=== PATIENT | female | born 1980 | race Caucasian/White ===

== ENCOUNTER 2017-12-06 08:39 | Emergency (ER) | payer MEDICARE, MEDICAID, SELFPAY ==
[2017-12-06 08:46] VITALS: BP 124/73; PULSE 94; RESP 20; TEMP 36.6; O2SAT 99
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
[2017-12-06] MEDS: Normal Saline 250 ML IV (09:15)
[2017-12-06] MEDS: Ketorolac 30 MG/ML VIAL IVP (09:15)
[2017-12-06 09:17] LABS: Abs Immature Grans 0.06 k/cumm (0.0-0.09); Absolute Basophil Count 0.03 k/cumm (0.0-0.2); Absolute Eosinophil Count 0.24 k/cumm (0.0-0.7); Absolute Lymphocyte Count 2.23 k/cumm (1.2-3.4); Absolute Monocyte Count 0.61 k/cumm (0.11-0.7); Absolute Neutrophil Count 5.75 k/cumm (1.2-6.7); Basophils % 0.3; Eosinophils % 2.7; HCT 44.6 % (36.0-46.0); HGB 14.9 g/dL (12.0-15.5); Immature Grans % 0.7; Mean Corp. HGB Concentration 33.4 g/dL (32.0-36.0); Mean Corpuscular Hemoglobin 28.6 pg (27.0-33.0); Mean Corpuscular Volume 85.6 fL (80-95); Mean Platelet Volume 10.6 fL (8.0-11.0); Monocytes % 6.8; Neutrophils % 64.5; Platelet Count 217 x1000/uL (130-400); RBC 5.21 m/cumm (4.00-5.20); RBC Distribution Width 13.6 % (11.7-14.6); White Blood Cell Count 8.92 k/cumm (4.4-10.8)
[2017-12-06] MEDS: Omnipaque 350 MG/ML 100 ML BTL IJ (09:35)
[2017-12-06 09:46] LABS: ALT 15 U/L (12-78); AST 14 U/L (15-37); Albumin 3.7 g/dL (3.4-5.0); Alkaline Phosphatase 86 U/L (46-116); Anion Gap 7.9 mmol/L (3-11); BUN 12 mg/dL (7-18); Bilirubin, Total 0.4 mg/dL (0.2-1.0); CO2 27.1 mmol/L (21.0-32.0); CREATININE 0.83 mg/dL (0.55-1.02); Calcium 8.7 mg/dL (8.5-10.1); Chloride 104 mmol/L (98-107); Glucose 86 mg/dL (70-100); Potassium 3.5 mmol/L (3.5-5.1); Sodium 139 mmol/L (136-145); Total Protein 7.4 g/dL (6.4-8.2)
[2017-12-06] MEDS: Omnipaque 350 MG/ML 50 ML BTL IJ (09:55)
== END 2017-12-06 10:30 | disposition home or self-care (01) ==
PROVIDERS: Emergency Provider Emergency Medicine; PCP Family Medicine
DX: S16.1XXA Strain of muscle, fascia and tendon at neck level, initial encounter (principal); V86.55XA Driver of 3- or 4- wheeled all-terrain vehicle (ATV) injured in nontraffic accident, initial encounter
CPT/HCPCS: 36415; 70496; 70498; 74177; 80053; 96361; 96374; 99285; 70450; 71260; 72125; 85025; 99284; J1885; J3490; L0172; Q9967

== ENCOUNTER 2018-06-08 15:56 | Emergency (ER) | payer MEDICARE, MEDICAID, SELFPAY ==
[2018-06-08 16:14] VITALS: BP 111/63; PULSE 84; RESP 16; TEMP 36.6; O2SAT 99
--- NOTE | 2018-06-08 16:19 | ED.GENADUL_ITS ---
Discharge Plan Disposition Patient Disposition: HOME Condition: Stable Discharge Details Chief Complaint: RespSymp Clinical Impression: Chronic cough, Bronchitis Primary Care Provider: Leni Tubbs ED Provider: Keshia Ramirez Home Meds and New Rx's Prescriptions: New prednisone 50 mg tablet 50 mg PO DAILY 5 Days Qty: 5 RF: 0 benzonatate [Tessalon Perles] 100 mg capsule 100 mg PO TID PRN (Reason: cough ) Qty: 10 RF: 0 Continued clonazepam 0.5 MG tablet 0.5 mg PO PRN RF: 0 levothyroxine 50 MCG tablet 50 mcg PO DAILY RF: 0 esomeprazole magnesium [Nexium] 40 MG capsule,delayed release(DR/EC) 40 mg PO DAILY RF: 0 sertraline 25 MG tablet 100 mg PO DAILY RF: 0 naproxen 500 MG tablet 500 mg PO BID PRN PRNQty: 30 RF: 0 Discharge Instructions Instructions: Acute Bronchitis (ED), Chronic Cough (ED) Additional Instructions: Use the albuterol inhaler as needed and directed for shortness of breath. Take the cough medication as needed and directed. Take the steroids until finished. Follow-up with your primary care doctor next week for reevaluation. Return immediately to the emergency department with any worsening or new concerning symptoms. Discharge Data Discharge Date/Time-TO BE ENTERED AT DEPARTURE: 06/08/18 18:44 Discharge Physician: Keshia Ramirez Medical Decision Making 37yo F w/ a h/o anxiety, depression, hypothyroidism and PTSD who presents with cough with green sputum, intermittent shortness of breath and chest tightness for the past 3 weeks. Patient is a smoker. She denies any relief with Z-Luis per PCP. She was recently negative for the flu and strep per PCP. Patient states she called her PCP today and was advised to come to the emergency department for chest x-ray. No DVT/PE risk factors. PERC negative. Normal ENT exam. Lungs clear to auscultation. As patient has no wheezing or rhonchi, with normal respiratory rate and O2 sats duration due to patient's complaint of intermittent chest tightness and shortness of breath, will obtain a d-dimer. She denies any chest pain, and with her infectious complaints, I do not see an indication for an EKG. Will give an albuterol neb treatment and obtain a chest x-ray. 1800 --d-dimer negative. Chest x-ray negative. Patient feels better after albuterol neb treatment. Will send home with an albuterol inhaler and give a dose of p.o. prednisone here as well as a prescription for prednisone and Tessalon Perles. As patient has no pneumonia on x-ray, no fever, normal lung exam, respiratory rate and oxygen saturation, I do not see an indication for antibiotics and patient is agreeable. Patient instructed to follow-up with primary care doctor for reevaluation and return here if worse. Had a long discussion with patient regarding the risks of continued smoking and that it will likely prolong her illness and this could be the contributing factor to her persistent symptoms. Discussed the options to help her with smoking cessation. 185 --it was very busy in the ED at the time of patient discharge and she eloped before receiving her prescriptions, inhaler or discharge instructions. Called patient on contact number left but there was no answer and unable to leave a message. Will leave prescriptions with an infant it up if she calls back. Patient return to the ED the following day and pickle processor her albuterol inhaler, prescriptions and discharge instructions. Medical Records Medical records reviewed: Yes I reviewed the patient's medical records. Imaging Data Radiologic Study: Radiologist's impression: XR Chest, 2 Views EXAM DATE/TIME: 06/08/2018 4:34 PM FINDINGS: Lungs: Unremarkable. No consolidation. Pleural space: Unremarkable. No pleural effusion. No pneumothorax. Heart/Mediastinum: Unremarkable. No cardiomegaly. Bones/joints: Unremarkable. IMPRESSION: No acute abnormality. Lab Data Lab results reviewed: Yes I reviewed the patient's lab results. Laboratory Tests Range/Units 06/08/18 16:52 D-Dimer (<500) ng/mlFEU 216 HPI General Mode of arrival: ambulatory . Date/Time Provider Initiated Documentation: 06/08/18 16:01 . Limitations to Documentation: no limitations . Information obtained by: patient . HPI Narrative: Pt is a 37yo F who presents to the ED with a complaint of cough with green sputum production for the past 3 weeks. Patient states she saw her primary care doctor for the symptoms earlier this month and was negative for the flu and strep and was given a Z-Luis. She denies any improvement in her symptoms. She states the cough is bothering her the most. She does admit to a occasional shortness of breath with exertion and chest tightness. She does admit to intermittent decreased appetite. She denies any known fever, wheezing, rhinorrhea, sore throat, ear pain, vomiting or diarrhea. She states she called her primary care doctor's office today and was referred to the emergency department for chest x-ray. Related Data Home Medications Medication Instructions Recorded Confirmed clonazepam 0.5 mg PO PRN 06/06/13 06/08/18 esomeprazole magnesium [Nexium] 40 mg PO DAILY 06/06/13 06/08/18 levothyroxine 50 mcg PO DAILY 06/06/13 06/08/18 sertraline 100 mg PO DAILY 06/06/13 06/08/18 naproxen 500 mg PO BID PRN PRN #30 tablet 06/30/14 06/08/18 benzonatate [Tessalon Perles] 100 mg PO TID PRN #10 cap 06/08/18 prednisone 50 mg PO DAILY 5 Days #5 tab 06/08/18 Previous Rx's Medication Instructions Recorded naproxen 500 mg PO BID PRN PRN #30 tablet 06/30/14 benzonatate [Tessalon Perles] 100 mg PO TID PRN #10 cap 06/08/18 prednisone 50 mg PO DAILY 5 Days #5 tab 06/08/18 Allergies Allergy/AdvReac Type Severity Reaction Status Date / Time topiramate [From Topamax] Allergy Skin Rash Unverified 06/08/18 16:19 General Stated Complaint: RespSymp SONALI: 3 Review of Systems Review of Systems All systems reviewed & are unremarkable except as noted in HPI and below Constitutional Reports as per HPI, Denies chills and Denies fever(s) Eyes Denies blurry vision ENT Denies dizziness, Denies sore throat and Denies throat swelling Cardiovascular Denies chest pain and Reports dyspnea Respiratory Reports cough and Reports dyspnea Gastrointestinal Denies abdominal pain, Denies diarrhea and Denies vomiting Genitourinary Denies hematuria and Denies dysuria Musculoskeletal Denies back pain and Denies numbness Integumentary/Breasts Denies lesions and Denies rash Neurologic Denies dizziness, Denies focal weakness and Denies numbness Allergic/Immunologic Denies throat swelling [facility] Medical History PTSD (post-traumatic stress disorder) (Acute) Anxiety (Chronic) Depression (Chronic) Hypothyroidism (Chronic) Surgical History History of bilateral tubal ligation (Acute) History of hysterectomy (Chronic) Social History Smoking/Tobacco Use Status: Current every day Tobacco Type: cigarettes Alcohol Intake: current Alcohol Intake frequency: holidays/special occasions only Drug use: Never Do you feel safe at home: Yes Do you feel safe in your relationship?: Yes Exam Const General: cooperative, healthy appearing and no acute distress HENMT Head: normal to inspection Ears: hearing grossly normal bilaterally, external ears normal and TM's normal bilaterally General nose exam: external nose normal Face and sinus: normal facial exam Mouth: oral mucosae normal, no drooling and no trismus Teeth and gingiva: dentition normal Throat: posterior oropharynx normal, uvula midline, no peritonsillar masses and no uvular edema Eyes General: appearance normal, both eyes and all related structures Pupils: PERRL EOM: EOM intact bilaterally Neck Neck: normal visual inspection and No submandibular swelling Lymphatic: no lymphadenopathy noted Chest Chest: normal inspection of the chest and no tenderness Resp Effort & Inspection: normal respiratory effort and able to speak in complete sentences Auscultation: clear to auscultation bilaterally Cardio Rate: regular rate Rhythm: regular rhythm GI Inspection: normal to inspection Palpation: soft, not firm, not rigid and nontender Auscultation: normal bowel sounds Skin General skin exam: no rashes or lesions noted Neuro General: alert, awake and oriented x3 Cognition: normal cognition Speech: speech normal Motor: muscle tone normal throughout Sensory Exam: no sensory deficits noted Extrem General: normal to inspection, full ROM and no edema Psych Appearance: grossly normal Mental Status: mental status grossly normal Speech and Movement: speech and movement normal Affect: normal affect Course Vital Signs Temperature 97.9 F 06/08/18 16:14 Pulse 84 06/08/18 16:14 Respiratory Rate 16 06/08/18 16:14 Blood Pressure 111/63 06/08/18 16:14 Pulse Oximetry 99 06/08/18 16:14 Temperature 97.9 F 06/08/18 16:14 Temperature Source Temporal Artery Scan 06/08/18 16:14 Pulse 84 06/08/18 16:14 Respiratory Rate 16 06/08/18 16:14 Blood Pressure 111/63 06/08/18 16:14 Blood Pressure Position Sitting 06/08/18 16:14 Pulse Oximetry 99 06/08/18 16:14 Oxygen Delivery Method Room Air 06/08/18 16:14 Oxygen Flow Rate 0 06/08/18 16:14
--- NOTE | 2018-06-08 16:33 | DI.RAD_ITS ---
SYMPTOM/DIAGNOSIS: COUGH, SOB PA AND LATERAL CHEST: The heart is normal in size. The lungs are clear. The mediastinal structures and pleura appear intact. CONCLUSION: Normal chest.
[2018-06-08] MEDS: Albuterol/Ipratropium 3 ML UPD VIAL UPD (16:41)
[2018-06-08 17:29] LABS: D-Dimer 216 ng/mlFEU (<500)
--- NOTE | 2018-06-08 17:47 | DI.VRAD_ITS ---
EXAM: XR Chest, 2 Views EXAM DATE/TIME: 06/08/2018 4:34 PM CLINICAL HISTORY: 37 years old, female; Signs and symptoms; Cough TECHNIQUE: Imaging protocol: XR of the chest, 2 views. COMPARISON: CR ABD FLAT UPRIGHT PA CHEST 06/06/2013 1:08 PM FINDINGS: Lungs: Unremarkable. No consolidation. Pleural space: Unremarkable. No pleural effusion. No pneumothorax. Heart/Mediastinum: Unremarkable. No cardiomegaly. Bones/joints: Unremarkable. IMPRESSION: No acute abnormality. Dictated and Authenticated by: Leni Haji MD. Ordering:FRANCO Schmitt MD
--- NOTE | 2018-06-08 19:01 | NUR.NOTE ---
Pt advised was done waiting and left, all discharge paperwork was done. Dr. Ramirez is going to call pt and advise can come back to get paperwork and prescriptions if she would like.
== END 2018-06-08 18:44 | disposition home or self-care (01) ==
PROVIDERS: Emergency Provider Physician Assistant; PCP Nurse Practitioner Family
DX: J20.9 Acute bronchitis, unspecified (principal); R05 Cough; F17.210 Nicotine dependence, cigarettes, uncomplicated
CPT/HCPCS: 36415; 99284; 71046; 85379; J7620

== ENCOUNTER 2020-07-11 11:32 | Emergency (ER) | payer MEDICARE, MEDICAID, OTHER, SELFPAY ==
[2020-07-11 11:35] VITALS: BP 121/47; PULSE 88; RESP 16; TEMP 36.5; O2SAT 97
--- NOTE | 2020-07-11 11:52 | ED.GENADUL_ITS ---
Discharge Plan Disposition Patient Disposition: HOME Condition: Stable Discharge Details Clinical Impression: Neck pain Primary Care Provider: Leni Tubbs ED Provider: Sacha Germain Home Meds and New Rx's Prescriptions: New cyclobenzaprine 10 mg tablet 10 mg PO TID PRNQty: 20 RF: 0 prednisone 20 mg tablet 60 mg PO DAILY 4 Days Qty: 12 RF: 0 Continued clonazepam 0.5 MG tablet 0.5 mg PO PRN RF: 0 levothyroxine 50 MCG tablet 50 mcg PO DAILY RF: 0 esomeprazole magnesium [Nexium] 40 MG capsule,delayed release(DR/EC) 40 mg PO DAILY RF: 0 sertraline 25 MG tablet 150 mg PO DAILY RF: 0 naproxen 500 MG tablet 500 mg PO BID PRN PRNQty: 30 RF: 0 Discharge Instructions Instructions: Neck Pain (ED) Additional Instructions: your cat scan did not show any concerning findings follow up with your primary care provider this week if you have severe worsening pain, fevers or feel more ill [facility] Medical Decision Making 39 yo female with hx of right rotator cuff injury per her history from 6 years ago and chronic intermittent pain in the right shoulder/neck but for the last few months has had constant right posterior neck pain. She states she turned her head this morning in the shower and had increase in pain. No falls or trauma. No fevers, no vision changes or speech changes. She has tenderness to the right posterior neck, no midline pain and no visible or palpable deformities. She has pain when trying to turn to the right. CN II-XII intact and no focal motor or sensation deficits. Also has had intermittent mild right side headaches as well, not severe and no pain in the head now. Her symptoms are likely musculoskeletal and but given worsening pain that worsened today with head turning concern for possible dissection so will obtain CTA. 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 labs and imaging unremarkable, stable exam. Discussed further testing including an LP and my clinical suspicion of meningitis being low but can't exclude it without an LP. She has decision making capacity and at present time is declining a lumbar puncture after being told risks of missing entities such as meningitis including disability and . I do suspect this is musculoskeletal in nature and will start her on flexeril and prednisone. She was advised to follow up with her primary care provider this week and return precautions also given Differential Diagnosis Differential Diagnosis: muscle spasm, dissection, aneurysm Imaging Data Radiologic Study: Attestation: I personally reviewed and interpreted this imaging study as follows: Imaging: CT Scan Radiologist's impression: no acute findings Lab Data Lab results reviewed: Yes I reviewed the patient's lab results. HPI General Mode of arrival: ambulatory . Date/Time Provider Initiated Documentation: 07/11/20 11:38 . Limitations to Documentation: no limitations . Information obtained by: patient . History of Present Illness 39 year old F presents to the emergency department with the chief complaint of neck pain, described as moderate, Quality is described as aching, and is localized to the neck. Patient reports no radiation. Patient started experiencing this month(s) (2) and it has been constant. Rest improves symptom(s), Movement worsens symptoms . Patient notes no other symptoms.. Patient did receive the following treatments prior to arrival, NSAID Related Data Home Medications Medication Instructions Recorded Confirmed clonazepam 0.5 mg PO PRN 06/06/13 07/11/20 esomeprazole magnesium [Nexium] 40 mg PO DAILY 06/06/13 07/11/20 levothyroxine 50 mcg PO DAILY 06/06/13 07/11/20 sertraline 150 mg PO DAILY 06/06/13 07/11/20 naproxen 500 mg PO BID PRN PRN #30 tablet 06/30/14 06/08/18 cyclobenzaprine 10 mg PO TID PRN #20 tab 07/11/20 prednisone 60 mg PO DAILY 4 Days #12 tab 07/11/20 Previous Rx's Medication Instructions Recorded naproxen 500 mg PO BID PRN PRN #30 tablet 06/30/14 cyclobenzaprine 10 mg PO TID PRN #20 tab 07/11/20 prednisone 60 mg PO DAILY 4 Days #12 tab 07/11/20 Allergies Allergy/AdvReac Type Severity Reaction Status Date / Time topiramate [From Topamax] Allergy Skin Rash Unverified 06/08/18 16:19 General Stated Complaint: Nk/Back Pain SONALI: 3 Review of Systems All systems reviewed & are unremarkable except as noted in HPI and below Constitutional Constitutional: Denies chills, Denies fever(s) and Denies weakness Cardiovascular Cardiovascular: Denies chest pain and Denies dyspnea Respiratory Respiratory: Denies cough and Denies dyspnea Gastrointestinal Gastrointestinal: Denies abdominal pain, Denies nausea and Denies vomiting Musculoskeletal Musculoskeletal: Denies joint swelling Neurologic Neurologic: Denies weakness [facility] Medical History (Updated 07/11/20 @ 13:44 by Sacha Germain MD) Anxiety Depression Hypothyroidism PTSD (post-traumatic stress disorder) Surgical History History of bilateral tubal ligation History of hysterectomy Social History Smoking/Tobacco Use Status: Current every day Tobacco Type: cigarettes Smoking risk assessment performed?: Yes Alcohol Intake: current Alcohol Intake frequency: holidays/special occasions only Drug use: Never Do you feel safe at home: Yes Do you feel safe in your relationship?: Yes Exam Const General: no acute distress Orientation: alert HENMT Head: normal to inspection Ears: external ears normal General nose exam: external nose normal Mouth: moist mucous membranes Eyes General: appearance normal, both eyes and all related structures Neck Neck: normal visual inspection Resp Effort & Inspection: normal respiratory effort and able to speak in complete sentences Cardio Rate: regular rate Skin General skin exam: no rashes or lesions noted Neuro General: patient alert and patient oriented x3 Extrem General: normal to inspection Psych Mental Status: mental status grossly normal Course Vital Signs Vital signs: Vital Signs Temperature 36.5 C 07/11/20 11:35 Pulse 88 07/11/20 11:35 Respiratory Rate 16 07/11/20 11:35 Blood Pressure 121/47 L 07/11/20 11:35 Pulse Oximetry 97 07/11/20 11:35 Temperature 36.5 C 07/11/20 11:35 Temperature Source Skin 07/11/20 11:35 Pulse 88 07/11/20 11:35 Respiratory Rate 16 07/11/20 11:35 Blood Pressure 121/47 L 07/11/20 11:35 Pulse Oximetry 97 07/11/20 11:35 Oxygen Delivery Method Room Air 07/11/20 11:35 Oxygen Flow Rate 0 07/11/20 11:35 Pain Level 8 07/11/20 11:35
[2020-07-11] MEDS: diazePAM 10 MG/2 ML SYR 5 MG IVP (12:15)
[2020-07-11 12:20] LABS: Abs Immature Grans 0.04 10^3/uL (0.0-0.06); Absolute Basophil Count 0.04 10^3/uL (0.0-0.2); Absolute Eosinophil Count 0.14 10^3/uL (0.0-0.7); Absolute Monocyte Count 0.54 10^3/uL (0.1-0.8); Absolute Neutrophil Count 5.44 10^3/uL (1.2-6.7); Basophils % 0.5; Eosinophils % 1.8; HCT 40.7 % (36.0-46.0); HGB 13.5 g/dL (11.2-15.7); Immature Grans % 0.5; Lymphocytes % 22.5; MCH 28.7 pg (27.0-33.0); MCHC 33.2 % (32.0-36.0); MCV 86.4 fL (80-95); MPV 9.7 fL (8.0-11.0); Monocytes % 6.8; Neutrophils % 67.9; Nucleated RBC 0 %; Platelet Count 245 10^3/uL (130-400); RBC 4.71 10^6/uL (3.93-5.22); RDW 12.7 % (11.7-14.6); RDW-SD 40.2 fL
[2020-07-11 12:32] LABS: ALT 23 U/L (14-59); AST 14 U/L (15-37); Albumin 3.9 g/dL (3.4-5.0); Alkaline Phosphatase 67 U/L (46-116); Anion Gap 7.7 mmol/L (3-11); BUN 12 mg/dL (7-18); Bilirubin, Total 0.4 mg/dL (0.2-1.0); CO2 29.3 mmol/L (21.0-32.0); CREATININE 0.9 mg/dL (0.55-1.02); Calcium 9.1 mg/dL (8.5-10.1); Chloride 103 mmol/L (98-107); Glucose 72 mg/dL (74-106); Potassium 3.6 mmol/L (3.5-5.1); Sodium 140 mmol/L (136-145); Total Protein 7.3 g/dL (6.4-8.2)
[2020-07-11] MEDS: Normal Saline - Diluent 50 ML VIAL IV (12:33)
[2020-07-11] MEDS: Omnipaque 350 MG/ML 100 ML BTL IJ (12:33)
[2020-07-11] MEDS: Normal Saline Flush 10 ML SYR IVP (12:34)
--- NOTE | 2020-07-11 12:50 | DI.CT_ITS ---
Exam(s) CT BRAIN NECK CTA EXAM: CT BRAIN NECK CTA CLINICAL HISTORY: right sided neck and head pain. TECHNIQUE: Imaging Protocol: Axial CT angiography was performed with multi-slice acquisition and mu lti-planar and/or 3D reconstructions. CONTRAST MATERIAL: Intravenous: Omnipaque 350 Contrast volume:85 mL FINDINGS: CT Head W/O and W: Ventricles and Extra axial spaces: Normal in size and morphology for the patient's age. Hemorrhage: None. Cerebral parenchyma: Normal. Midline shift: None. Brainstem/Cerebellum: Normal. Calvarium: Normal. Visualized Paranasal sinuses/Mastoids: Clear. Soft Tissues: Unremarkable. Enhancement: Unremarkable. CTA Neck W: Common Carotid: Right: No dissection, occlusion or significant stenosis. Left: No dissection, occlusion or significant stenosis. External Carotid: Right: No occlusion or significant stenosis. Left: No occlusion or significant stenosis. Internal Carotid: Right: No dissection, occlusion or significant stenosis. Left: No dissection, occlusion or significant stenosis. Vertebral Artery: Right: No dissection, occlusion or significant stenosis. Left: No dissection, occlusion or significant stenosis. Lung Apices: Normal. Bones: Normal. Soft Tissues: Normal. CTA Brain W: Internal Carotid Arteries: Petrous: Normal. Cavernous: Normal. Cerebral: Normal. Anterior Cerebral Arteries: Right: No aneurysm, occlusion or significant stenosis. Left: No aneurysm, occlusion or significant stenosis. Middle Cerebral Arteries: Right: No aneurysm, occlusion or significant stenosis. Left: No aneurysm, occlusion or significant stenosis. Posterior cerebral Arteries: Right: No aneurysm, occlusion or significant stenosis. Left: No aneurysm, occlusion or significant stenosis. Vertebral Arteries: Right: No aneurysm, occlusion or significant stenosis. Left: No aneurysm, occlusion or significant stenosis. Basilar Artery: No aneurysm, occlusion or significant stenosis. IMPRESSION: 1. Normal CTA examination of the [place]. 2. Unremarkable noncontrast CT Head. 3. Normal CTA examination of the neck. RADIATION DOSE DELIVERED: 1,771.15mGy.cm Total DLP DATA REPOSITORY: All CT scans at this facility are submitted to the National Radiology Data Registry (NRDR) Dose Index Registry (DIR) with the [employer] (ACR). RADIATION OPTIMIZATION: All CT scans at this facility use at least one of these dose optimization te chniques: automated exposure control; mA and/or kV adjustment per patient size (includes targeted exa ms where dose is matched to clinical indication); or iterative reconstruction.
--- NOTE | 2020-07-11 13:24 | DI.VRAD_ITS ---
PROCEDURE INFORMATION: Exam: CT Angiography Head With Contrast, Arteriography Exam date and time: 07/11/2020 12:39 PM Age: 39 years old Clinical indication: Other: Right sided neck and head pain TECHNIQUE: Imaging protocol: Computed tomography angiography of the head with contrast. Exam focused on the arteries. 3D rendering (Not supervised by radiologist): MIP and/or 3D reconstructed images were created by the technologist. Radiation optimization: All CT scans at this facility use at least one of these dose optimization techniques: automated exposure control; mA and/or kV adjustment per patient size (includes targeted exams where dose is matched to clinical indication); or iterative reconstruction. Contrast material: OMNIPAQUE 350; Contrast volume: 85 ml; Contrast route: INTRAVENOUS (IV); COMPARISON: No relevant prior studies available. FINDINGS: ANTERIOR CIRCULATION: Right internal carotid artery: Unremarkable. Intracranial segment is patent with no significant stenosis. No aneurysm. Right middle cerebral artery: Unremarkable. No occlusion or significant stenosis. No aneurysm. Right anterior cerebral artery: Unremarkable. No occlusion or significant stenosis. No aneurysm. Left internal carotid artery: Unremarkable. Intracranial segment is patent with no significant stenosis. No aneurysm. Left middle cerebral artery: Unremarkable. No occlusion or significant stenosis. No aneurysm. Left anterior cerebral artery: Unremarkable. No occlusion or significant stenosis. No aneurysm. POSTERIOR CIRCULATION: Right vertebral artery: Unremarkable. No occlusion or significant stenosis. No aneurysm. Left vertebral artery: Unremarkable. No occlusion or significant stenosis. No aneurysm. Basilar artery: Unremarkable. No occlusion or significant stenosis. No aneurysm. Right posterior cerebral artery: Unremarkable. No occlusion or significant stenosis. No aneurysm. Left posterior cerebral artery: Unremarkable. No occlusion or significant stenosis. No aneurysm. Brain: No definite mass, mass effect, or midline shift. Cerebral ventricles: No ventriculomegaly. Bones/joints: Unremarkable. No acute fracture. Soft tissues: Unremarkable. IMPRESSION: No large vessel stenosis or occlusion. PROCEDURE INFORMATION: Exam: CT Angiography Neck With Contrast Exam date and time: 07/11/2020 12:39 PM Age: 39 years old Clinical indication: Other: Right sided neck and head pain TECHNIQUE: Imaging protocol: Computed tomography angiography of the neck with contrast. 3D rendering (Not supervised by radiologist): MIP and/or 3D reconstructed images were created by the technologist. Radiation optimization: All CT scans at this facility use at least one of these dose optimization techniques: automated exposure control; mA and/or kV adjustment per patient size (includes targeted exams where dose is matched to clinical indication); or iterative reconstruction. Contrast material: OMNIPAQUE 350; Contrast route: INTRAVENOUS (IV); COMPARISON: No relevant prior studies available. FINDINGS: Right common carotid artery: No stenosis. No dissection or occlusion. Right internal carotid artery: No stenosis of the extracranial segment. No dissection or occlusion. Right external carotid artery: No occlusion or stenosis of the origin. Right vertebral artery: No stenosis. No dissection or occlusion. Left common carotid artery: No stenosis. No dissection or occlusion. Left internal carotid artery: No stenosis of the extracranial segment. No dissection or occlusion. Left external carotid artery: No occlusion or stenosis of the origin. Left vertebral artery: No stenosis. No dissection or occlusion. Bones/joints: No acute fracture. Soft tissues: Normal. No significant soft tissue swelling. IMPRESSION: No stenosis or occlusion. REFERENCES: NASCET CRITERIA. The degree of internal carotid artery stenosis is based on NASCET criteria. Normal is no stenosis. Mild is less than 50% stenosis. Moderate is 50-69% stenosis. Severe is 70% to 99% stenosis. Total occlusion is no detectable patent lumen. Dictated and Authenticated by: Tg Bello MD. Ordering:ADAN Goncalves MD
[2020-07-11] MEDS: predniSONE 20 MG TAB 60 MG PO (13:49)
[2020-07-11 13:55] VITALS: BP 112/70; PULSE 76; RESP 16; TEMP 36.5; O2SAT 99
== END 2020-07-11 13:56 | disposition home or self-care (01) ==
PROVIDERS: Emergency Provider Emergency Medicine; PCP Nurse Practitioner Family
DX: M54.2 Cervicalgia (principal)
CPT/HCPCS: 70496; 70498; 80053; 96374; 99285; 85025; 99283; J3360; J3490; J7512

== ENCOUNTER 2021-03-24 03:25 | Emergency (ER) | payer MEDICARE, BC, MEDICAID, SELFPAY ==
[2021-03-24 03:26] VITALS: BP 116/75; PULSE 104; RESP 18; TEMP 36.4; O2SAT 99
--- NOTE | 2021-03-24 03:30 | DI.CT_ITS ---
Exam(s) CT ABDOMEN PELVIS W EXAM: CT ABDOMEN PELVIS W CLINICAL HISTORY: n/v, pain. TECHNIQUE: Imaging Protocol: Axial computed tomography images with coronal and sagittal reformatted images were created and reviewed CONTRAST MATERIAL: Intravenous: Omnipaque 100cc Oral: None FINDINGS: VISUALIZED LUNG BASES: No nodules nor pleural effusions evident. ABDOMEN: There is no ascites. LIVER: There is an unchanged tiny cyst in the medial aspect of the right hepatic lobe. No new ominou s focal hepatic lesions. No dilatation of intrahepatic ducts. GALLBLADDER/BILIARY: There are multiple tiny gallstones layered along the dependent wall of the gallb ladder lumen. The gallbladder wall is not edematous and there is no pericholecystic fluid. CBD is n ot dilated and there are no calculi seen within the CBD. PANCREAS: No evidence of pancreatic mass nor dilatation of the pancreatic duct. SPLEEN: Spleen is not enlarged. No obvious intrasplenic lesions. Splenic and portal veins are paten t. ADRENALS: There is a nodule in the medial limb of the left adrenal gland measuring 1.4 by 1.0 cm, mor e evident than previous. KIDNEYS:No cysts evident. No solid renal masses. No calculi nor hydronephrosis.. ABDOMINAL AORTA: Abdominal aorta is not enlarged. LYMPH NODES:There is no retroperitoneal nor paraaortic adenopathy. ABDOMINAL WALL: No evidence of significant anterior abdominal wall nor inguinal hernia. GI: There is no evidence of bowel obstruction, free air, nor abscess. PELVIS: GI: No evidence of appendicitis.No evidence of sigmoid diverticulitis.The colon exhibits normal diame ter but appears fluid-filled. LYMPH NODES: There is no intrapelvic nor inguinal adenopathy. REPRODUCTIVE: The uterus is surgically absent. Left ovary measures 2 x 1.7 cm. Right ovary measures 2.7 x 2.0 cm and contains what appears to be a partially crenated cyst which measures 1.8 x 1.4 cm. There is no free fluid in the pelvis. No abscess evident. . URINARY BLADDER: Collapsed. No obvious abnormality. OSSEOUS: No significant osseous lesions. IMPRESSION: 1. Cholelithiasis. There are multiple tiny gallstones layered along the posterior wall of the gallbl adder. No gallbladder wall edema nor pericholecystic fluid to suggest acute diverticulitis. There i s no dilatation of the biliary tree, both intra and extrahepatic. 2. There is a 14 x 10 millimeter nodule in the left adrenal gland, slightly more prominent than on e prior November 2017 CT scan. Requires appropriate follow-up. 3. Colon exhibits normal diameter but is fluid-filled and this probably reflects diarrhea state. Cor relation with any clinical signs of colitis is recommended. No obvious abnormal small bowel findings . 4. Uterus is surgically absent. No abnormal fluid collection nor extraovarian adnexal mass. There i s partially crenated cyst in the right ovary measuring 18 x [address] study was 1st read by [facility]. My final report was called to ER physician 03/24/2021 at 8:55 a.m. RADIATION DOSE DELIVERED: 1,057.01mGy.cm Total DLP DATA REPOSITORY: All CT scans at this facility are submitted to the National Radiology Data Registry (NRDR) Dose Index Registry (DIR) with the [employer] (ACR). RADIATION OPTIMIZATION: All CT scans at this facility use at least one of these dose optimization te chniques: automated exposure control; mA and/or kV adjustment per patient size (includes targeted exa ms where dose is matched to clinical indication); or iterative reconstruction.
--- NOTE | 2021-03-24 03:34 | ED.GENADUL_ITS ---
Discharge Plan Disposition Patient Disposition: HOME Condition: Stable Discharge Details Clinical Impression: Diarrhea, Nausea & vomiting, Abdominal pain Primary Care Provider: Leni Tubbs ED Provider: Sacha Germain Home Meds and New Rx's Prescriptions: New ondansetron 4 mg tablet,disintegrating 4 mg PO Q8H PRN (Reason: nausea and vomiting) Qty: 30 RF: 0 Continued clonazepam 0.5 MG tablet 0.5 mg PO PRN RF: 0 levothyroxine 50 MCG tablet 50 mcg PO DAILY RF: 0 esomeprazole magnesium [Nexium] 40 MG capsule,delayed release(DR/EC) 40 mg PO DAILY RF: 0 sertraline 25 MG tablet 150 mg PO DAILY RF: 0 naproxen 500 MG tablet 500 mg PO BID PRN PRNQty: 30 RF: 0 cyclobenzaprine 10 mg tablet 10 mg PO TID PRNQty: 20 RF: 0 Discharge Instructions Instructions: Acute Nausea and Vomiting (ED), Acute Diarrhea (ED) Additional Instructions: take frequent small sips of water to stay hydrated follow up with your primary care provider within 1 week if symptoms continue if you feel more ill, have severe worsening pain or are unable to hold water down return to the emergency department Medical Decision Making 40 yo female who states she has a history of anxiety, prior hysterectomy, who comes in with diarrhea, n/v since 4pm yesterday and some intermittent abdominal discomfort. She denies any new foods, new meds or recent antibiotics. She did take a klonopin as she felt like it may be related to her anxiety without relief. She denies having chest pain or shortness of breath. She arrives with ems after getting zofran and feels improved. She has clear lungs, no murmurs, no leg edema, and on abdominal exam her abdomen is soft with tenderness around the umbilicus. Suspect gastroenteritis given the diarrhea but given her prior surgery and tenderness will obtain ct to evaluate for possible sbo labs unremarkable, mild leukocytosis and ct without acute findings other than fluid in colon compatible with nonspecific diarrheal state. Suspect viral gastroenteritis. She is feeling better and tolerating po, mild epigastric tenderness now no guarding and negative jennings's sign. She is stable for d/c and advised to f/u with pcp and return precautions given Differential Diagnosis Differential Diagnosis: colitis, sbo, food related illness Medical Records Medical records reviewed: Yes I reviewed the patient's medical records. Imaging Data Radiologic Study: Attestation: I personally reviewed and interpreted this imaging study as follows: Imaging: CT Scan Radiologist's impression: IMPRESSION: Fluid within the colon compatible with nonspecific diarrheal state. Lab Data Lab results reviewed: Yes I reviewed the patient's lab results. HPI General Mode of arrival: EMS . Date/Time Provider Initiated Documentation: 03/24/21 03:30 . Limitations to Documentation: no limitations . Information obtained by: patient . History of Present Illness 40 year old F presents to the emergency department with the chief complaint of n/v, described as moderate, and is localized to the abdomen. Patient reports no radiation. Patient started experiencing this hour(s) (11) and it has been intermittent. other things that improve symptom(s), (zofran with ems) No exacerbating factors reported . Patient notes denies chest pain and shortness of breath. Patient did receive the following treatments prior to arrival, other (zofran with ems) Related Data Home Medications Medication Instructions Recorded Confirmed clonazepam 0.5 mg PO PRN 06/06/13 03/24/21 esomeprazole magnesium [Nexium] 40 mg PO DAILY 06/06/13 03/24/21 levothyroxine 50 mcg PO DAILY 06/06/13 03/24/21 sertraline 150 mg PO DAILY 06/06/13 03/24/21 naproxen 500 mg PO BID PRN PRN #30 tablet 06/30/14 03/24/21 cyclobenzaprine 10 mg PO TID PRN #20 tab 07/11/20 03/24/21 ondansetron 4 mg PO Q8H PRN #30 tab 03/24/21 Previous Rx's Medication Instructions Recorded naproxen 500 mg PO BID PRN PRN #30 tablet 06/30/14 cyclobenzaprine 10 mg PO TID PRN #20 tab 07/11/20 ondansetron 4 mg PO Q8H PRN #30 tab 03/24/21 Allergies Allergy/AdvReac Type Severity Reaction Status Date / Time topiramate [From Topamax] Allergy Skin Rash Unverified 06/08/18 16:19 General Stated Complaint: Nausea/Vomit/Diar SONALI: 3 Review of Systems All systems reviewed & are unremarkable except as noted in HPI and below Constitutional Constitutional: Denies chills, Denies fever(s) and Denies weakness Cardiovascular Cardiovascular: Denies chest pain and Denies dyspnea Respiratory Respiratory: Denies cough and Denies dyspnea Neurologic Neurologic: Denies weakness PFSH All Active Problems (Updated 03/24/21 @ 04:29 by Sacha Germain MD) Neck pain (Acute) Diarrhea (Acute) Nausea & vomiting (Acute) Abdominal pain (Acute) Medical History (Updated 03/24/21 @ 04:29 by Sacha Germain MD) Anxiety Depression Hypothyroidism PTSD (post-traumatic stress disorder) Surgical History History of bilateral tubal ligation History of hysterectomy Social History Smoking/Tobacco Use Status: Current every day Tobacco Type: cigarettes Smoking risk assessment performed?: Yes Alcohol Intake: current Alcohol Intake frequency: holidays/special occasions only Drug use: Never Substance use type: does not use Do you feel safe at home: Yes Do you feel safe in your relationship?: Yes Exam Const General: anxious Orientation: alert HENMT Head: normal to inspection Ears: external ears normal General nose exam: external nose normal Mouth: moist mucous membranes Eyes General: appearance normal, both eyes and all related structures Neck Neck: normal visual inspection Resp Effort & Inspection: normal respiratory effort and able to speak in complete sentences Cardio Rate: regular rate GI Palpation: soft and tender Skin General skin exam: no rashes or lesions noted Neuro General: patient alert and patient oriented x3 Extrem General: normal to inspection Psych Mental Status: mental status grossly normal Course Vital Signs Vital signs: Vital Signs Temperature 36.4 C L 03/24/21 03:26 Pulse 104 H 03/24/21 03:26 Respiratory Rate 18 03/24/21 03:26 Blood Pressure 116/75 03/24/21 03:26 Pulse Oximetry 99 03/24/21 03:26 Temperature 36.4 C L 03/24/21 03:26 Temperature Source Temporal Artery Scan 03/24/21 03:26 Pulse 104 H 03/24/21 03:26 Respiratory Rate 18 03/24/21 03:26 Respiratory Effort 03/24/21 03:31 Blood Pressure 116/75 03/24/21 03:26 Blood Pressure Position Supine 03/24/21 03:26 Pulse Oximetry 99 03/24/21 03:26 Oxygen Delivery Method Room Air 03/24/21 03:26 Oxygen Flow Rate 0 03/24/21 03:26 Pain Level 4 03/24/21 03:26
[2021-03-24 03:41] LABS: Abs Immature Grans 0.07 10^3/uL (0.0-0.06); Absolute Basophil Count 0.04 10^3/uL (0.0-0.2); Absolute Eosinophil Count 0.15 10^3/uL (0.0-0.7); Absolute Lymphocyte Count 0.42 10^3/uL (1.2-3.4); Absolute Monocyte Count 0.48 10^3/uL (0.1-0.8); Basophils % 0.3; Eosinophils % 1.1; HCT 43.7 % (36.0-46.0); HGB 14.3 g/dL (11.2-15.7); Immature Grans % 0.5; Lymphocytes % 3.2; MCH 27.6 pg (27.0-33.0); MCHC 32.7 % (32.0-36.0); MCV 84.2 fL (80-95); Monocytes % 3.6; Neutrophils % 91.3; Nucleated RBC 0 %; Platelet Count 223 10^3/uL (130-400); RBC 5.19 10^6/uL (3.93-5.22); RDW 12.4 % (11.7-14.6); RDW-SD 38.2 fL; WBC 13.26 10^3/uL (4.4-10.8)
[2021-03-24 03:43] LABS: Absolute Neutrophil Count 12.11 10^3/uL (1.2-6.7)
[2021-03-24] MEDS: Omnipaque 350 MG/ML 100 ML BTL IJ (03:48)
[2021-03-24] MEDS: Normal Saline 1,000 ML 1000 ML IV (03:48)
[2021-03-24] MEDS: Prochlorperazine 10 MG/2 ML VIAL IVP (03:49)
[2021-03-24] MEDS: Normal Saline Flush 10 ML SYR IVP (03:49)
[2021-03-24 03:51] LABS: Bilirubin Small (Negative); Blood Negative (Negative); Clarity Sl Cloudy (Clear); Glucose Negative (Negative); Ketones Negative (Negative); Leukocyte Esterase Negative (Negative); Nitrite Negative (Negative); Specific Gravity >= 1.030 (1.005-1.025); Urobilinogen 0.2 EU/dL (Up TO 0.2); pH 5.5 (5-8)
[2021-03-24 03:54] LABS: Bacteria Moderate HPF (Negative); C & S Indicated? No; Casts Negative LPF (Negative); Crystals Negative HPF (Negative); Epithelial Cells Few HPF (Negative); Mucus Negative (Negative); RBC Negative HPF (0-2); WBC Negative HPF (0-5)
[2021-03-24 04:03] LABS: ALT 21 U/L (14-59); AST 14 U/L (15-37); Alkaline Phosphatase 78 U/L (46-116); Anion Gap 12.4 mmol/L (3-11); BUN 20 mg/dL (7-18); Bilirubin, Direct 0.2 mg/dL (0.0-0.2); Bilirubin, Total 0.8 mg/dL (0.2-1.0); CO2 23.6 mmol/L (21.0-32.0); CREATININE 1.1 mg/dL (0.55-1.02); Calcium 9.2 mg/dL (8.5-10.1); Chloride 103 mmol/L (98-107); Estimated GFR 55.01 (mL/min/1.73m2); Glucose 147 mg/dL (74-106); Lipase 51 U/L (73-393); Magnesium 1.7 mg/dL (1.8-2.4); Potassium 3.4 mmol/L (3.5-5.1); Sodium 139 mmol/L (136-145); Total Protein 7.8 g/dL (6.4-8.2)
[2021-03-24 04:03] LABS: *AMPHETAMINES SCREEN URINE Negative (Negative); *BARBITURATES SCREEN URINE Negative (Negative); *BENZODIAZEPINES SCREEN URINE Positive (Negative); Cannabinoids THC Negative (Negative); Cocaine Screen,Urine Negative (Negative); METHADONE URINE SCREEN Negative (Negative); OPIATES URINE SCREEN Negative (Negative)
[2021-03-24 04:10] LABS: ETHANOL BLOOD < 3.0 mg/dL (<10)
[2021-03-24 04:10] LABS: Tricyclic Antidepressants Negative (Negative)
--- NOTE | 2021-03-24 04:23 | DI.VRAD_ITS ---
PROCEDURE INFORMATION: Exam: CT Abdomen And Pelvis With Contrast Exam date and time: 03/24/2021 3:34 AM Age: 40 years old Clinical indication: Nausea and vomiting and other: Diarrhea; Prior surgery; Surgery date: 6+ months; Surgery type: Hysterectomy; Patient HX: N/v pain TECHNIQUE: Imaging protocol: Computed tomography of the abdomen and pelvis with contrast. Radiation optimization: All CT scans at this facility use at least one of these dose optimization techniques: automated exposure control; mA and/or kV adjustment per patient size (includes targeted exams where dose is matched to clinical indication); or iterative reconstruction. Contrast material: OMNIPAQUE 350; Contrast volume: 100 ml; Contrast route: INTRAVENOUS (IV); COMPARISON: CT Specials^TRAUMA CAP (Adult) 12/06/2017 9:40 AM FINDINGS: Liver: Normal. No mass. Gallbladder and bile ducts: Cholelithiasis is present without evidence for gallbladder wall thickening. Pancreas: Normal. No ductal dilation. Spleen: Normal. No splenomegaly. Adrenal glands: Normal. No mass. Kidneys and ureters: Normal. No hydronephrosis. Stomach and bowel: Fluid within the colon compatible with nonspecific diarrheal state. Appendix: No evidence of appendicitis. Intraperitoneal space: Unremarkable. No free air. No significant fluid collection. Vasculature: Unremarkable. No abdominal aortic aneurysm. Lymph nodes: Unremarkable. No enlarged lymph nodes. Urinary bladder: Unremarkable as visualized. Reproductive: Unremarkable as visualized. Bones/joints: Unremarkable. No acute fracture. Soft tissues: Unremarkable. IMPRESSION: Fluid within the colon compatible with nonspecific diarrheal state. Dictated and Authenticated by: Jose L Dailey MD. Ordering:ADAN Goncalves MD
[2021-03-24 04:44] VITALS: BP 118/47; PULSE 101; RESP 18; O2SAT 96
--- NOTE | 2021-03-29 07:47 | W.ED.FU ---
Follow Up Plan: Entry for date of service 03/24/21: Contacted by Dr. Sanchez of radiology for callback, adrenal nodule present on CT somewhat larger than prior, radiology recommends MRI without contrast at 6 months for follow-up. I attempted to contact patient by phone but was unable to do so. I contacted patient's PCP, Dr. Brittani Gonzalez, and discussed with her radiology callback result and need for outpatient MRI follow-up at 6 months, she will contact patient and order follow-up imaging.
== END 2021-03-24 04:55 | disposition home or self-care (01) ==
PROVIDERS: Emergency Provider Emergency Medicine; PCP Family Medicine
DX: R19.7 Diarrhea, unspecified (principal); R11.2 Nausea with vomiting, unspecified; R10.9 Unspecified abdominal pain; E27.8 Other specified disorders of adrenal gland; Z79.899 Other long term (current) drug therapy
CPT/HCPCS: 80053; 80307; 83690; 96361; 96374; 99285; 74177; 80320; 81003; 81015; 82248; 83735; 84443; 85025; 99284; J0780; J3490

== ENCOUNTER 2021-09-11 15:40 | Emergency (ER) | payer MEDICARE, MEDICAID, SELFPAY ==
[2021-09-11 15:44] VITALS: BP 146/70; PULSE 95; TEMP 36.7; O2SAT 98
--- NOTE | 2021-09-11 15:57 | ED.GENADUL_ITS ---
Discharge Plan Disposition Patient Disposition: HOME Condition: Improving Discharge Details Clinical Impression: Acute flank pain Primary Care Provider: Brittani Gonzalez ED Provider: Shailesh Jones Home Meds and New Rx's Prescriptions: New ketorolac 10 mg tablet 10 mg PO Q8H PRN (Reason: pain) Qty: 10 0RF Continued betamethasone valerate [Luxiq] 0.12 % foam 1 applic topical DAILY Qty: 100 0RF Rx Instructions: once daily for two weeks clonazepam 0.5 MG tablet 0.5 mg PO PRN levothyroxine 50 MCG tablet 50 mcg PO DAILY esomeprazole magnesium [Nexium] 40 MG capsule,delayed release(DR/EC) 40 mg PO DAILY sertraline 25 MG tablet 150 mg PO DAILY ondansetron 4 mg tablet,disintegrating 4 mg PO Q8H PRN (Reason: nausea and vomiting) Qty: 30 0RF cyclobenzaprine 10 mg tablet 10 mg PO TID PRNQty: 20 0RF Held naproxen 500 MG tablet 500 mg PO BID PRN PRNQty: 30 0RF Hold Instructions: Resume on 09/14/21. hold while using Toradol Discharge Instructions Instructions: Flank Pain (ED) Additional Instructions: Small, frequent sips of fluids to maintain good hydration. May use the prescribed Toradol beginning tomorrow if needed for pain. Do not use with Naprosyn or other NSAIDs such as Advil/ibuprofen. We will ask your care managers to refer you to urology for follow-up. Continue to strain your urine to see if you can catch a kidney stone in the passage of urine. Return if develop a fever, increasing pain, or any other acute concerns. Medical Decision Making 40-year-old female presents from home. She has had 5 days of right flank pain that radiates to her groin. Been fairly constant. She is noted some dark- colored urine with this. She is not had a fever and no vomiting. No rash, no injury. Patient arrives to the ER awake alert and interactive, she is afebrile on exam does reveal some right flank tenderness to percussion as well as discrete right upper quadrant tenderness to deep palpation. Patient's laboratories are reassuring with a white count of 8, hematocrit 40, platelets 238. Chemistries are within normal limits. Specific gravity is 1.03. No hematuria or evidence of infection. Patient referred for CT scan which does not show nephrolithiasis or collecting system obstruction. There is note of a small benign-appearing left adrenal adenoma similar to prior. On my review of the images I do question small 4 mm distal ureteral calculus, but there certainly is no evidence of hydronephrosis. Patient's pain is improving. We will have her screen her urine. She may follow-up with urology. Will offer Toradol for home. HPI General Mode of arrival: ambulatory . Date/Time Provider Initiated Documentation: 09/11/21 15:54 . Limitations to Documentation: no limitations . Information obtained by: patient . History of Present Illness 40 year old F presents to the emergency department with the chief complaint of R flank/back pain for days, described as moderate, Quality is described as constant, and is localized to the back and right. Patient abdomen. Patient started experiencing this day(s) and it has been constant. No relieving factors improve symptom(s), No exacerbating factors reported . Patient notes denies fever/chills and nausea/vomiting. Related Data Home Medications Medication Instructions Recorded Confirmed clonazepam 0.5 mg tablet 0.5 mg PO PRN 06/06/13 06/04/21 esomeprazole magnesium 40 mg 40 mg PO DAILY 06/06/13 06/04/21 capsule,delayed release (Nexium) levothyroxine 50 mcg tablet 50 mcg PO DAILY 06/06/13 06/04/21 sertraline 25 mg tablet 150 mg PO DAILY 06/06/13 06/04/21 naproxen 500 mg tablet 500 mg PO BID PRN PRN #30 tabs 06/30/14 06/04/21 cyclobenzaprine 10 mg tablet 10 mg PO TID PRN #20 tabs 07/11/20 06/04/21 ondansetron 4 mg disintegrating 4 mg PO Q8H PRN nausea and 03/24/21 06/04/21 tablet vomiting #30 tabs betamethasone valerate 0.12 % 1 applic topical DAILY #100 grams 06/04/21 06/04/21 topical foam (Luxiq) ketorolac 10 mg tablet 10 mg PO Q8H PRN pain #10 tabs 09/11/21 Previous Rx's Medication Instructions Recorded naproxen 500 mg tablet 500 mg PO BID PRN PRN #30 tabs 06/30/14 cyclobenzaprine 10 mg tablet 10 mg PO TID PRN #20 tabs 07/11/20 ondansetron 4 mg disintegrating 4 mg PO Q8H PRN nausea and 03/24/21 tablet vomiting #30 tabs betamethasone valerate 0.12 % 1 applic topical DAILY #100 grams 06/04/21 topical foam (Luxiq) ketorolac 10 mg tablet 10 mg PO Q8H PRN pain #10 tabs 09/11/21 Allergies Allergy/AdvReac Type Severity Reaction Status Date / Time topiramate [From Topamax] Allergy Skin Rash Unverified 06/04/21 14:01 General Stated Complaint: Nk/Back Pain SONALI: 3 Review of Systems Narrative: 6 systems reviewed and otherwise negative PFSH All Active Problems (Updated 09/11/21 @ 19:02 by Shailesh Jones MD) Neck pain (Acute) Acute flank pain (Acute) Medical History (Updated 09/11/21 @ 19:02 by Shailesh Jones MD) Anxiety Depression Hypothyroidism PTSD (post-traumatic stress disorder) Surgical History History of bilateral tubal ligation History of hysterectomy Social History Smoking/Tobacco Use Status: Current every day Tobacco Type: cigarettes Smoking risk assessment performed?: Yes Alcohol Intake: current Alcohol Intake frequency: holidays/special occasions on ly Drug use: Never Substance use type: does not use Do you feel safe at home: Yes Do you feel safe in your relationship?: Yes Exam Narrative Exam Narrative: GEN: awake, alert, oriented 3. Pleasant, well groomed, interactive. HEAD: Normocephalic, atraumatic ENT: Mucous membranes moist, oropharynx unremarkable, External ear exam unremarkable EYES: PERRL, EOMI NECK: Full ROM, no BONNIE, no menigismus CHEST/RESP: Nontender, clear to auscultation bilateral, no wheeze/rhonchi/rales CARDIOVASCULAR: RRR, no murmur, rub raymond. 2+ Rad pulse bilateral ABDOMEN: Soft, discrete right mid to upper quadrant tenderness, no mass. Right flank tender to percussion. +Bowel sounds EXT: Full ROM, no edema, no rash Neuro: Grossly normal neurologic exam, conversant, interactive. Psych: Speech fluent, thoughts congruent, affect normal Course Vital Signs Vital signs: Vital Signs Temperature 36.7 C 09/11/21 15:44 Pulse 95 H 09/11/21 15:44 Blood Pressure 146/70 H 09/11/21 15:44 Pulse Oximetry 98 09/11/21 15:44 Temperature 36.7 C 09/11/21 15:44 Temperature Source Temporal Artery Scan 09/11/21 15:44 Pulse 95 H 09/11/21 15:44 Blood Pressure 146/70 H 09/11/21 15:44 Blood Pressure Position Sitting 09/11/21 15:44 Pulse Oximetry 98 09/11/21 15:44 Oxygen Delivery Method Room Air 09/11/21 15:44 Oxygen Flow Rate 0 09/11/21 15:44
--- NOTE | 2021-09-11 16:00 | DI.CT_ITS ---
Exam(s) CT RENAL COLIC WO EXAM: CT RENAL COLIC WO CLINICAL HISTORY: R flank pain. TECHNIQUE: Imaging Protocol: Axial computed tomography images with coronal and sagittal reformatted images were created and reviewed CONTRAST MATERIAL: Intravenous: none Oral: None CT CT ABDOMEN PELVIS W from 03/24/2021 FINDINGS: VISUALIZED LUNG BASES: No nodules nor pleural effusions evident. ABDOMEN: There is no ascites. LIVER: There are no obvious focal hepatic lesions evident of this noninfused study. GALLBLADDER/BILIARY: Calcified gallstones noted. Gallbladder is not distended. CBD is not dilated. PANCREAS: No evidence of pancreatic mass nor dilatation of the pancreatic duct. SPLEEN: Spleen size upper normal, unchanged ADRENALS: Right adrenal gland unremarkable. Previously described nodule in the medial limb of the le ft adrenal gland measures 1.6 by 1.0 cm, perhaps minimally larger than previous. KIDNEYS:No cysts evident. No solid renal masses. No calculi nor hydronephrosis. . ABDOMINAL AORTA: Abdominal aorta is not enlarged. LYMPH NODES: There is no retroperitoneal nor paraaortic adenopathy. ABDOMINAL WALL: No evidence of significant anterior abdominal wall nor inguinal hernia. GI: There is no evidence of bowel obstruction, free air, nor abscess. PELVIS: LYMPH NODES: There is no intrapelvic nor inguinal adenopathy. GI: No evidence of appendicitis.No evidence of sigmoid diverticulitis. URINARY BLADDER: No calculi nor obvious masses evident REPRODUCTIVE: Uterus is again noted be surgically absent. Ovaries appear unremarkable on this non fe w study. OSSEOUS: No free fluid IMPRESSION: 1. No renal calculi nor obstruction of either urinary tract. No calculi in the unremarkable appearin g urinary bladder. 2. Cholelithiasis noted. No obvious gallbladder wall edema nor dilatation of the CBD. 3. Left adrenal nodule measuring 16 x 10 millimeters, similar perhaps minimally more prominent than o n the prior study. This left adrenal nodule has slowly increased in size since the CT scan of 2018. The right adrenal gland remains unremarkable. Uterus is again noted be surgically absent. Ovaries appear age-appropriate. No free fluid. RADIATION DOSE DELIVERED: 925.13mGy.cm Total DLP DATA REPOSITORY: All CT scans at this facility are submitted to the National Radiology Data Registry (NRDR) Dose Index Registry (DIR) with the [employer] (ACR). RADIATION OPTIMIZATION: All CT scans at this facility use at least one of these dose optimization te chniques: automated exposure control; mA and/or kV adjustment per patient size (includes targeted exa ms where dose is matched to clinical indication); or iterative reconstruction.
[2021-09-11 16:01] LABS: Bilirubin Negative (Negative); Blood Negative (Negative); Clarity Clear (Clear); Glucose Negative (Negative); Ketones Negative (Negative); Leukocyte Esterase Negative (Negative); Nitrite Negative (Negative); Specific Gravity >= 1.030 (1.005-1.025); Urobilinogen 0.2 EU/dL (Up TO 0.2); pH 5.5 (5-8)
[2021-09-11 16:53] LABS: Abs Immature Grans 0.05 10^3/uL (0.0-0.06); Absolute Basophil Count 0.05 10^3/uL (0.0-0.2); Absolute Eosinophil Count 0.16 10^3/uL (0.0-0.7); Absolute Monocyte Count 0.57 10^3/uL (0.1-0.8); Absolute Neutrophil Count 5.04 10^3/uL (1.2-6.7); Basophils % 0.6; Eosinophils % 1.8; HCT 40.8 % (36.0-46.0); HGB 13.5 g/dL (11.2-15.7); Immature Grans % 0.6; Lymphocytes % 32.3; MCH 27.4 pg (27.0-33.0); MCHC 33.1 % (32.0-36.0); MCV 83 fL (80-95); MPV 10.2 fL (8.0-11.0); Monocytes % 6.6; Neutrophils % 58.1; Platelet Count 238 10^3/uL (130-400); RBC 4.92 10^6/uL (3.93-5.22); RDW 12.3 % (11.7-14.6); RDW-SD 37.3 fL; WBC 8.67 10^3/uL (4.4-10.8)
[2021-09-11 17:12] LABS: ALT 16 U/L (14-59); AST 17 U/L (15-37); Albumin 4.1 g/dL (3.4-5.0); Alkaline Phosphatase 79 U/L (46-116); Anion Gap 7.7 mmol/L (3-11); BUN 10 mg/dL (7-18); Bilirubin, Total 0.3 mg/dL (0.2-1.0); CO2 26.3 mmol/L (21.0-32.0); CREATININE 0.9 mg/dL (0.55-1.02); Calcium 9.2 mg/dL (8.5-10.1); Chloride 103 mmol/L (98-107); Glucose 76 mg/dL (74-106); Potassium 3.7 mmol/L (3.5-5.1); Sodium 137 mmol/L (136-145); Total Protein 8.1 g/dL (6.4-8.2)
[2021-09-11] MEDS: Ketorolac 30 MG/ML VIAL IVP (17:21)
[2021-09-11] MEDS: Normal Saline 1,000 ML 1000 ML IV (17:22)
--- NOTE | 2021-09-11 19:00 | DI.VRAD_ITS ---
PROCEDURE INFORMATION: Exam: CT Abdomen And Pelvis Without Contrast Exam date and time: 09/11/2021 18:37 Age: 40 years old Clinical indication: Abdominal pain; Right; Patient HX: R flank pain TECHNIQUE: Imaging protocol: Computed tomography of the abdomen and pelvis without contrast. COMPARISON: CT ABDOMEN PELVIS W 03/24/2021 03:51 FINDINGS: Liver: No hepatic masses on noncontrast imaging. Gallbladder and bile ducts: Cholelithiasis. The gallbladder is contracted. No significant biliary dilation or radiopaque stones in the biliary tree. Pancreas: No gross pathology in the pancreas on noncontrast imaging. Spleen: No splenomegaly or focal lesions. Adrenal glands: Small benign-appearing left adrenal adenoma similar to prior. Normal right adrenal gland. Kidneys and ureters: No nephrolithiasis or collecting system obstruction. Stomach and bowel: No gross pathology in the small bowel without IV contrast. No colitis or diverticular disease. Appendix: No evidence of appendicitis. Intraperitoneal space: No free air. No significant fluid collection. Vasculature: No abdominal aortic aneurysm. Lymph nodes: No significantly enlarged lymph nodes. Urinary bladder: Unremarkable as visualized. Reproductive: Hysterectomy. Bones/joints: No acute fracture. Soft tissues: No suspicious lesions. IMPRESSION: 1. No nephrolithiasis or collecting system obstruction. 2. Incidental findings as described. Dictated and Authenticated by: Michelle Wolfe MD. Ordering:HESHAM Cash MD
[2021-09-11 19:12] VITALS: BP 116/75; PULSE 70; RESP 16; O2SAT 99
--- NOTE | 2021-09-12 00:40 | NUR.NOTE ---
referral faxed to [facility]rology to f/u for flank pain.Nursing Note:
== END 2021-09-11 19:14 | disposition home or self-care (01) ==
PROVIDERS: Emergency Provider Emergency Medicine; PCP Family Medicine
DX: R10.31 Right lower quadrant pain (principal); R10.811 Right upper quadrant abdominal tenderness; D35.02 Benign neoplasm of left adrenal gland; F17.210 Nicotine dependence, cigarettes, uncomplicated; Z90.710 Acquired absence of both cervix and uterus; Z98.51 Tubal ligation status
CPT/HCPCS: 80053; 96361; 96374; 99284; 74176; 81003; 85025; J1885

== ENCOUNTER 2022-06-25 09:29 | Outpatient (REF) | payer MEDICARE, MEDICAID, SELFPAY ==
[2022-06-25 11:05] LABS: ALT 32 U/L (14-59); AST 19 U/L (15-37); Albumin 3.8 g/dL (3.4-5.0); Alkaline Phosphatase 82 U/L (46-116); Anion Gap 7.2 mmol/L (3-11); BUN 15 mg/dL (7-18); Bilirubin, Total 0.3 mg/dL (0.2-1.0); CO2 27.8 mmol/L (21.0-32.0); CREATININE 0.9 mg/dL (0.55-1.02); Calcium 9.4 mg/dL (8.5-10.1); Chloride 108 mmol/L (98-107); Estimated GFR 82.37 (mL/min/1.73m2); FREE T4 1.04 ng/dL (0.76-1.46); Glucose 129 mg/dL (74-106); Potassium 4.3 mmol/L (3.5-5.1); Sodium 143 mmol/L (136-145); TSH 0.95 uIU/mL (0.36-3.74); Total Protein 7.2 g/dL (6.4-8.2)
[2022-06-29 09:45] LABS: Metanephrine, Free <0.20 nmol/L (<0.50); Normetanephrine, Free 0.24 nmol/L (<0.90)
[2022-06-29 23:05] LABS: Urine Volume 950 mL
== END 2022-06-25 09:30 | disposition home or self-care (01) ==
LOC: LBN 09:29
PROVIDERS: PCP Family Medicine
DX: E03.9 Hypothyroidism, unspecified (principal); E27.8 Other specified disorders of adrenal gland
CPT/HCPCS: 80053; 81050; 82088; 82530; 83789; 83835; 84439; 84443

== ENCOUNTER 2022-06-26 07:50 | Outpatient (REF) | payer MEDICARE, MEDICAID, SELFPAY ==
[2022-06-29 17:47] LABS: Renin Activity, Plasma 3.4 ng/mL/h
== END 2022-06-26 07:51 | disposition home or self-care (01) ==
LOC: LBN 07:50
PROVIDERS: PCP Family Medicine
DX: E27.8 Other specified disorders of adrenal gland (principal); E03.9 Hypothyroidism, unspecified
CPT/HCPCS: 82088; 84244

== ENCOUNTER 2022-08-09 21:04 | Emergency (ER) | payer OTHER, SELFPAY ==
[2022-08-09 21:07] VITALS: BP 120/59; PULSE 98; RESP 17; TEMP 37.2; O2SAT 99
--- NOTE | 2022-08-09 22:30 | DI.CT_ITS ---
Exam(s) CT CHEST/ABD/PEL W EXAM: CT CHEST/ABD/PEL W CLINICAL HISTORY: trauma, left abd, left rib and back pain. TECHNIQUE: Imaging Protocol: Axial computed tomography images with coronal and sagittal reformatted images were created and reviewed CONTRAST MATERIAL: Intravenous: Omnipaque 350 Contrast volume:100 ml Oral: no COMPARISON: CT CT RENAL COLIC WO from 09/11/2021 FINDINGS: CHEST: Tracheobronchial tree: Patent where visualized. Pulmonary parenchyma: No consolidation or dominant measurable mass. No evidence of pulmonary contusi on. Mild basilar atelectasis. Pleura: No effusion or pneumothorax. Lymph nodes: Within normal limits. Aorta: Thoracic portion non-dilated. No evidence of aortic injury. Heart: Normal size. No pericardial effusion. Bones: Unremarkable for age. No lytic or blastic lesions.No compression fractures. No evidence of r ib fracture. Soft tissues: No soft tissue hematoma. ABDOMEN: Liver: Normal density. No measurable mass. Gallbladder and biliary tract: Cholelithiasis. No biliary dilatation. No gallbladder wall thickenin g. Pancreas: Normal density, no abnormal calcifications or inflammatory process. Spleen: Normal. Kidneys: Normal size, contour and axis. No radiodense stones or obstructive uropathy. No suspicious m asses seen. Adrenal glands: Stable small nodule consistent with adenoma.. Aorta: Abdominal portion non-dilated. No evidence of aortic injury. Lymph nodes: Within normal limits. Soft tissues: Unremarkable. No hematomas. Fluid collection measuring 2.8 x 2.2 x 2.4 cm, noted betw een the proximal left rectus femoris muscles present previously but has increased in size. This coul d represent a synovial cyst versus ganglion. PELVIS: Bladder: Symmetric distention, no gross wall thickening. Bowel: No obstruction or bowel wall thickening. Peritoneal cavity: No ascites, collection or mesenteric inflammatory response. Bones: Unremarkable for age.. No evidence spine or pelvic fractures. Reproductive organs: Status post hysterectomy IMPRESSION: No acute abnormality in the chest, abdomen or pelvis.. 2.8 cm left sided fluid collection between the rectus femoris muscles just below the level of the hip . Findings could represent a synovial cyst or ganglion. If clinically indicated, an MRI could be co nsidered for further evaluation. RADIATION DOSE DELIVERED: 1,209mGy.cm Total DLP DATA REPOSITORY: All CT scans at this facility are submitted to the National Radiology Data Registry (NRDR) Dose Index Registry (DIR) with the [employer] (ACR). RADIATION OPTIMIZATION: All CT scans at this facility use at least one of these dose optimization te chniques: automated exposure control; mA and/or kV adjustment per patient size (includes targeted exa ms where dose is matched to clinical indication); or iterative reconstruction.
[2022-08-09] MEDS: Omnipaque 350 MG/ML 100 ML BTL IJ (23:07)
[2022-08-09] MEDS: Normal Saline - Diluent 50 ML VIAL IJ (23:14)
[2022-08-09 23:19] LABS: Abs Immature Grans 0.03 10^3/uL (0.0-0.06); Absolute Basophil Count 0.04 10^3/uL (0.0-0.2); Absolute Eosinophil Count 0.13 10^3/uL (0.0-0.7); Absolute Lymphocyte Count 2.91 10^3/uL (1.2-3.4); Absolute Monocyte Count 0.45 10^3/uL (0.1-0.8); Absolute Neutrophil Count 3.11 10^3/uL (1.2-6.7); Basophils % 0.6; Eosinophils % 1.9; HCT 38.7 % (36.0-46.0); HGB 12.8 g/dL (11.2-15.7); Immature Grans % 0.4; Lymphocytes % 43.6; MCH 27.9 pg (27.0-33.0); MCHC 33.1 % (32.0-36.0); MCV 84 fL (80-95); MPV 9.6 fL (8.0-11.0); Monocytes % 6.7; Neutrophils % 46.8; Platelet Count 226 10^3/uL (130-400); RBC 4.59 10^6/uL (3.93-5.22); RDW 13.6 % (11.7-14.6); RDW-SD 42.2 fL; WBC 6.67 10^3/uL (4.4-10.8)
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
[2022-08-09 23:22] LABS: Bilirubin Negative (Negative); Blood Trace-intact (Negative); Clarity Clear (Clear); Glucose Negative (Negative); Ketones Negative (Negative); Leukocyte Esterase Negative (Negative); Nitrite Negative (Negative); Urobilinogen 0.2 mg/dL (Up to 0.2); pH 5.5 (5-8)
[2022-08-09 23:30] LABS: ALT 18 U/L (14-59); AST 13 U/L (15-37); Albumin 3.9 g/dL (3.4-5.0); Alkaline Phosphatase 83 U/L (46-116); Anion Gap 8.5 mmol/L (3-11); BUN 12 mg/dL (7-18); Bilirubin, Total 0.3 mg/dL (0.2-1.0); CO2 27.5 mmol/L (21.0-32.0); Calcium 9.2 mg/dL (8.5-10.1); Chloride 105 mmol/L (98-107); Estimated GFR 72.58 (mL/min/1.73m2); Glucose 103 mg/dL (74-106); Magnesium 2.1 mg/dL (1.8-2.4); Potassium 3.6 mmol/L (3.5-5.1); Sodium 141 mmol/L (136-145); Total Protein 7.7 g/dL (6.4-8.2)
[2022-08-09] MEDS: ACETAMINOPHEN 1,000 MG/100 ML BTL 400 MG IVPB (23:30)
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
[2022-08-09 23:43] LABS: Bacteria Few HPF (Negative); C & S Indicated? No; Crystals Negative HPF (Negative); Epithelial Cells Few HPF (Negative); Mucus Negative (Negative); RBC 0-2 HPF (0-2); WBC 0-2 HPF (0-5)
[2022-08-09] MEDS: Lidocaine 5% Patch 1 PATCH TP (23:50)
== END 2022-08-10 00:05 | disposition home or self-care (01) ==
PROVIDERS: Emergency Provider Nurse Practitioner Family; PCP Family Medicine
DX: S30.1XXA Contusion of abdominal wall, initial encounter (principal); S00.83XA Contusion of other part of head, initial encounter; S00.81XA Abrasion of other part of head, initial encounter; Y09 Assault by unspecified means
CPT/HCPCS: 74177; 80053; 96365; 99285; 71260; 81003; 81015; 83735; 85025; 99284; J0131; J3490

== ENCOUNTER 2022-08-18 09:06 | Emergency (ER) | payer OTHER, SELFPAY ==
[2022-08-18 09:12] VITALS: BP 117/69; PULSE 94; RESP 16; TEMP 36.5; O2SAT 99
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
[2022-08-18] MEDS: MORPHine 4 MG/ML SYR 2 MG IVP (10:00)
[2022-08-18] MEDS: Ondansetron 4 MG/2 ML VIAL IVP (10:00)
[2022-08-18] MEDS: Ketorolac 15 MG/ML VIAL IVP (10:00)
[2022-08-18 10:13] LABS: Abs Immature Grans 0.03 10^3/uL (0.0-0.06); Absolute Basophil Count 0.06 10^3/uL (0.0-0.2); Absolute Eosinophil Count 0.14 10^3/uL (0.0-0.7); Absolute Lymphocyte Count 1.97 10^3/uL (1.2-3.4); Absolute Monocyte Count 0.33 10^3/uL (0.1-0.8); Absolute Neutrophil Count 2.84 10^3/uL (1.2-6.7); Basophils % 1.1; Eosinophils % 2.6; HCT 38.6 % (36.0-46.0); HGB 12.8 g/dL (11.2-15.7); Immature Grans % 0.6; Lymphocytes % 36.7; MCHC 33.2 % (32.0-36.0); MCV 85 fL (80-95); MPV 9.3 fL (8.0-11.0); Monocytes % 6.1; Neutrophils % 52.9; Platelet Count 218 10^3/uL (130-400); RBC 4.57 10^6/uL (3.93-5.22); RDW 13.2 % (11.7-14.6); RDW-SD 40.8 fL; WBC 5.37 10^3/uL (4.4-10.8)
[2022-08-18 10:32] LABS: ALT 44 U/L (14-59); AST 37 U/L (15-37); Albumin 3.6 g/dL (3.4-5.0); Alkaline Phosphatase 71 U/L (46-116); Anion Gap 6.3 mmol/L (3-11); BUN 9 mg/dL (7-18); Bilirubin, Total 0.2 mg/dL (0.2-1.0); CO2 27.7 mmol/L (21.0-32.0); Calcium 8.9 mg/dL (8.5-10.1); Chloride 104 mmol/L (98-107); Estimated GFR 72.58 (mL/min/1.73m2); Glucose 91 mg/dL (74-106); Sodium 138 mmol/L (136-145); Total Protein 7.1 g/dL (6.4-8.2)
[2022-08-18] MEDS: Omnipaque 350 MG/ML 500 ML BTL-Imaging package 100 ML IJ (11:03)
[2022-08-18] MEDS: Normal Saline - Diluent 50 ML VIAL IJ (11:03)
[2022-08-18] MEDS: Lidocaine 5% Patch 1 PATCH TP (11:29)
[2022-08-18 12:04] VITALS: BP 107/61; PULSE 81; RESP 20; O2SAT 99
== END 2022-08-18 13:16 | disposition home or self-care (01) ==
PROVIDERS: Emergency Provider Emergency Medicine; PCP Family Medicine
DX: S20.219A Contusion of unspecified front wall of thorax, initial encounter (principal); Y09 Assault by unspecified means
CPT/HCPCS: 36415; 74177; 80053; 96374; 96375; 99285; 71260; 85025; 99284; J1885; J2270; J2405

== ENCOUNTER 2023-07-24 15:16 | Outpatient (REF) | payer OTHER, SELFPAY ==
[2023-07-24 21:14] LABS: Abs Immature Grans 0.05 10^3/uL (0.0-0.06); Absolute Basophil Count 0.05 10^3/uL (0.0-0.2); Absolute Eosinophil Count 0.11 10^3/uL (0.0-0.7); Absolute Monocyte Count 0.37 10^3/uL (0.1-0.8); Absolute Neutrophil Count 3.84 10^3/uL (1.2-6.7); Basophils % 0.8 %; Eosinophils % 1.7 %; HCT 40.5 % (36.0-46.0); HGB 13.4 g/dL (11.2-15.7); Immature Grans % 0.8 %; Lymphocytes % 31.2 %; MCH 27.8 pg (27.0-33.0); MCHC 33.1 % (32.0-36.0); MCV 84 fL (80-95); MPV 10.5 fL (8.0-11.0); Monocytes % 5.8 %; Neutrophils % 59.7 %; Platelet Count 240 10^3/uL (130-400); RBC 4.82 10^6/uL (3.93-5.22); RDW-SD 39.6 fL; WBC 6.42 10^3/uL (4.4-10.8)
[2023-07-24 21:28] LABS: Iron 115 ug/dL (50-170); Total Iron Binding Capacity 397 ug/dL (250-450); Transferrin Sat 29 % (15-50)
[2023-07-24 21:41] LABS: Hemoglobin A1C 5.1 % (<5.7)
[2023-07-24 22:10] LABS: ALT 18 U/L (14-59); AST 10 U/L (15-37); Albumin 4.2 g/dL (3.4-5.0); Alkaline Phosphatase 66 U/L (46-116); Anion Gap 10.4 mmol/L (3-11); BUN 11 mg/dL (7-18); Bilirubin, Total 0.4 mg/dL (0.2-1.0); CO2 27.6 mmol/L (21.0-32.0); Calcium 9.4 mg/dL (8.5-10.1); Calculated LDL 129 mg/dL (<100); Chloride 106 mmol/L (98-107); Cholesterol 215 mg/dL (<200); Estimated GFR 72.13 (mL/min/1.73m2); Ferritin 55 ng/mL (8-252); Glucose 83 mg/dL (74-106); HDL Cholesterol 64 mg/dL (40-60); Magnesium 2.2 mg/dL (1.8-2.4); Potassium 3.9 mmol/L (3.5-5.1); Sodium 144 mmol/L (136-145); TSH (W/Ref FT4) 2.22 uIU/mL (0.36-3.74); Total Protein 7.4 g/dL (6.4-8.2); Triglyceride 111 mg/dL (<150); Vitamin B12 279 pg/mL (193-986)
== END 2023-07-24 15:17 | disposition home or self-care (01) ==
LOC: NCHCN 15:16
PROVIDERS: PCP Registered Nurse Critical Care Medicine; Visit Provider Family Medicine
DX: E78.5 Hyperlipidemia, unspecified (principal); E03.9 Hypothyroidism, unspecified; K21.9 Gastro-esophageal reflux disease without esophagitis; E66.8 Other obesity; Z68.34 Body mass index [BMI] 34.0-34.9, adult; Z86.2 Personal history of diseases of the blood and blood-forming organs and certain disorders involving the immune mechanism; Z79.899 Other long term (current) drug therapy
CPT/HCPCS: 80053; 80061; 82607; 82728; 83036; 83540; 83550; 83735; 84443; 85025

== ENCOUNTER 2023-08-30 14:06 | Outpatient (REF) | payer OTHER, SELFPAY ==
[2023-08-31 11:08] LABS: Campylobacter PCR Negative (Negative); Salmonella PCR Negative (Negative); Shiga Toxin PCR Negative (Negative); Shigella/Enteroinvasive Ecoli Negative (Negative)
[2023-09-01 18:35] LABS: Calprotectin <50.0 mcg/g
== END 2023-08-30 14:07 | disposition home or self-care (01) ==
LOC: NCHCN 14:06
PROVIDERS: PCP Registered Nurse Critical Care Medicine; Visit Provider Family Medicine
DX: R19.7 Diarrhea, unspecified (principal)
CPT/HCPCS: 87329; 87493; 87505; 83993

== ENCOUNTER 2023-11-26 17:57 | Emergency (ER) | payer OTHER, SELFPAY ==
[2023-11-26 17:58] VITALS: BP 124/84; PULSE 86; RESP 14; TEMP 36.8; O2SAT 98
--- NOTE | 2023-11-26 18:33 | ED.GENADUL_ITS ---
Discharge Plan Disposition Patient Disposition: Home Condition: Stable Discharge Details Clinical Impression: Pharyngitis Primary Care Provider: Sada Yusuf ED Provider: Sacha Germain Home Meds and New Rx's Prescriptions: New amoxicillin-pot clavulanate 875-125 mg tablet 1 tab PO BID Qty: 14 0RF Continued clonazepam 0.5 MG tablet 1 mg PO PRN levothyroxine 50 MCG tablet 75 mcg PO DAILY esomeprazole magnesium [Nexium] 40 MG capsule,delayed release(DR/EC) 40 mg PO BID sertraline 25 MG tablet 200 mg PO DAILY ondansetron 4 mg tablet,disintegrating 4 mg PO Q8H PRN (Reason: nausea and vomiting) Qty: 30 0RF Discharge Instructions Additional Instructions: If not better within a week follow-up with your primary care provider You can take 1000 mg of acetaminophen and 600 mg of ibuprofen every 6 hours as needed If you feel more ill, have high fevers or inability swallow liquids return to the emergency department for reevaluation HPI General Mode of arrival: ambulatory . Date/Time Provider Initiated Documentation: 11/26/23 18:06 . Limitations to Documentation: no limitations . Information obtained by: patient . History of Present Illness 43 year old F presents to the emergency department with the chief complaint of sore throat, described as moderate, Quality is described as aching, Patient started experiencing this day(s) (2) and it has been constant. No relieving factors improve symptom(s), No exacerbating factors reported . Patient notes denies fever/chills. Patient did receive the following treatments prior to arrival, none Related Data Home Medications ?Medication ?Instructions ?Recorded ?Confirmed clonazepam 0.5 mg tablet 1 mg PO PRN 06/06/13 11/26/23 esomeprazole magnesium 40 mg 40 mg PO BID 06/06/13 11/26/23 capsule,delayed release (Nexium) levothyroxine 50 mcg tablet 75 mcg PO DAILY 06/06/13 11/26/23 sertraline 25 mg tablet 200 mg PO DAILY 06/06/13 11/26/23 ondansetron 4 mg disintegrating 4 mg PO Q8H PRN nausea and 03/24/21 11/26/23 tablet vomiting #30 tabs amoxicillin 875 mg-potassium 1 tab PO BID #14 tabs 11/26/23 clavulanate 125 mg tablet Previous Rx's ?Medication ?Instructions ?Recorded ondansetron 4 mg disintegrating 4 mg PO Q8H PRN nausea and 03/24/21 tablet vomiting #30 tabs amoxicillin 875 mg-potassium 1 tab PO BID #14 tabs 11/26/23 clavulanate 125 mg tablet Allergies Allergy/AdvReac Type Severity Reaction Status Date / Time pork derived (porcine) Allergy Intermediate Other (See Verified 11/26/23 18:03 Comment) topiramate (From Topamax) Allergy Skin Rash Verified 11/26/23 18:03 General Stated Complaint: Sorethroat SONALI: 3 Review of Systems All systems reviewed & are unremarkable except as noted in HPI and below Constitutional Constitutional: Denies chills, Denies fever(s) and Denies weakness ENT Ears, Nose, Mouth, and Throat: Reports otalgia and Reports sore throat Cardiovascular Cardiovascular: Denies chest pain and Denies dyspnea Respiratory Respiratory: Denies cough and Denies dyspnea Gastrointestinal Gastrointestinal: Denies abdominal pain, Denies nausea and Denies vomiting Musculoskeletal Musculoskeletal: Denies joint swelling Integumentary/Breasts Skin/Breast: Denies rash Neurologic Neurologic: Denies weakness Exam Const General: no acute distress Orientation: alert HENMT Head: normal to inspection Ears: external ears normal and TM's normal bilaterally General nose exam: external nose normal Mouth: moist mucous membranes Eyes General: appearance normal, both eyes and all related structures Neck Neck: normal visual inspection Resp Effort & Inspection: normal respiratory effort and able to speak in complete sentences Cardio Rate: regular rate Skin General skin exam: no rashes or lesions noted Neuro General: patient alert and patient oriented x3 Extrem General: normal to inspection Psych Mental Status: mental status grossly normal Course Vital Signs Vital signs: Vital Signs Temperature 36.8 C 11/26/23 17:58 Pulse 86 11/26/23 17:58 Respiratory Rate 14 11/26/23 17:58 Blood Pressure 124/84 11/26/23 17:58 Pulse Oximetry 98 11/26/23 17:58 Temperature 36.8 C 11/26/23 17:58 Pulse 86 11/26/23 17:58 Respiratory Rate 14 11/26/23 17:58 Respiratory Effort Normal 11/26/23 18:05 Blood Pressure 124/84 11/26/23 17:58 Pulse Oximetry 98 11/26/23 17:58 Oxygen Delivery Method Room Air 11/26/23 17:58 Oxygen Flow Rate 0 11/26/23 17:58 Pain Level 8 11/26/23 17:58 Lab/Test Results Lab/Test Results: 11/26/23 18:26 Tonsil - Not Specified Group A Streptococcus Culture - Pending POC Strep Test-LING(Rapid) Start: 11/26/23 18:06 Freq: .Rapid Strep Test Status: Active Protocol: Document 11/26/23 18:25 AnnaJUDY (Rec: 11/26/23 18:25 [email or web address] [id number]) Strep test-LING(Rapid)-POC POC-Strep test-LING (Rapid) Negative POC-Strep test-LING (Rapid) Negative Medical Decision Making 43-year-old female comes in with 2 days of left posterior pharynx pain now radiating to the left ear. Denies any fevers or chills, states she has pain with swallowing but is able to swallow normally. She is well-appearing on exam. No stridor and swallowing normally in my exam. The left posterior pharynx has erythema and exudate, the uvula is midline, she has no submandibular swelling, no pain over the hyoid restricted neck movements. Both TMs are normal in appearance. Strep test was negative but given the unilateral exudates concern for bacterial pharyngitis, will treat with Augmentin. She has no findings on exam to suggest retropharyngeal abscess, epiglottitis, peritonsillar abscess. I advised to follow-up with her PCP within a week if not improving and return precautions given Differential Diagnosis Differential Diagnosis: Pharyngitis, URI Quality:SDOH Health Related Social Needs: No Data to Display PFSH All Active Problems (Updated 11/26/23 @ 18:33 by Sacha Germain MD) Pharyngitis (Acute) Acute chest wall pain (Acute) PTSD (post-traumatic stress disorder) (Acute) Hypothyroidism (Chronic) Depression (Chronic) Anxiety (Chronic) Neck pain (Acute) Surgical History History of bilateral tubal ligation History of hysterectomy Social History Smoking/Tobacco Use Status: Former Tobacco Use Smoking risk assessment performed?: Yes Alcohol Intake: current Alcohol Intake frequency: holidays/special occasions only Drug use: Never Substance use type: does not use Housing: house Do you feel safe at home: Yes Do you feel safe in your relationship?: Yes
[2023-11-26] MEDS: Dexamethasone 4 MG TAB 10 MG PO (19:03)
[2023-11-26] MEDS: Amoxicillin 875/Clav. 125 TAB PO (19:03)
[2023-11-26 19:04] VITALS: BP 124/84; PULSE 86; RESP 14; TEMP 36.8; O2SAT 98
[2023-11-26 19:06] VITALS: BP 124/84; PULSE 86; RESP 14; O2SAT 98
== END 2023-11-26 19:06 | disposition home or self-care (01) ==
PROVIDERS: Emergency Provider Emergency Medicine; PCP Registered Nurse Critical Care Medicine
DX: J02.9 Acute pharyngitis, unspecified (principal); H92.02 Otalgia, left ear
CPT/HCPCS: 87880; 99283; 87081; J8540

== ENCOUNTER 2024-01-04 16:02 | Outpatient (REF) | payer OTHER, SELFPAY ==
[2024-01-04 21:47] LABS: ALT 18 U/L (14-59); AST 23 U/L (15-37); Albumin 3.9 g/dL (3.4-5.0); Alkaline Phosphatase 70 U/L (46-116); Anion Gap 11.6 mmol/L (3-11); BUN 13 mg/dL (7-18); Bilirubin, Total 0.38 mg/dL (0.2-1.0); CO2 25.4 mmol/L (21.0-32.0); CREATININE 0.7 mg/dL (0.55-1.02); Calcium 9.1 mg/dL (8.5-10.1); Chloride 105 mmol/L (98-107); Estimated GFR 109.98 (mL/min/1.73m2); Glucose 72 mg/dL (74-106); Magnesium 2.2 mg/dL (1.8-2.4); Potassium 4.5 mmol/L (3.5-5.1); Sodium 142 mmol/L (136-145); TSH (W/Ref FT4) 2.02 uIU/mL (0.36-3.74); Total Protein 7.4 g/dL (6.4-8.2)
== END 2024-01-04 16:03 | disposition home or self-care (01) ==
LOC: NCHCN 16:02
PROVIDERS: PCP Registered Nurse Critical Care Medicine; Visit Provider Nurse Practitioner Family
DX: R00.2 Palpitations (principal); K58.0 Irritable bowel syndrome with diarrhea
CPT/HCPCS: 80053; 83735; 84443; 85025

== ENCOUNTER 2024-01-11 10:53 | Outpatient (CLI) | payer OTHER, SELFPAY ==
--- NOTE | 2024-02-06 14:20 | W.CARDEVENT ---
Date of service: 02/06/24 Time of Service: 14:20 Cardiac Event Recorder Referring Provider:: Antonette Gonzalez Indications:: Palpitations Cardiac Event Note: This is a cardiac event monitor. Patient was monitored for 6 days and 22 hours Rhythm throughout was sinus with an average heart rate of 89. Minimum was 55, maximum 157 There were very rare isolated atrial and ventricular ectopic beats. There was 1 ventricular triplet. There was no atrial fibrillation, no high-grade AV block, no pauses greater than 3 seconds Patient's symptoms correlated with sinus rhythm and sinus tachycardia
== END 2024-01-11 10:54 | disposition home or self-care (01) ==
LOC: CARDOPNVT 10:53
PROVIDERS: PCP Registered Nurse Critical Care Medicine; Visit Provider Nurse Practitioner Family
DX: R00.2 Palpitations (principal)
CPT/HCPCS: 93246

== ENCOUNTER 2024-02-06 13:08 | Outpatient (CLI) | payer OTHER, SELFPAY | END 2024-02-06 13:09 | disposition home or self-care (01) | LOC: CARDOPNVT 13:08 | PROVIDERS: PCP Registered Nurse Critical Care Medicine; Referring Provider Nurse Practitioner Family; Visit Provider Internal Medicine Cardiovascular Disease | DX: R00.2 Palpitations (principal); I49.3 Ventricular premature depolarization ==

== ENCOUNTER 2024-04-12 09:10 | Outpatient (CLI) | payer OTHER, SELFPAY ==
--- NOTE | 2024-04-12 09:58 | DI.RAD_ITS ---
Exam(s) XR LUMBAR SPINE COMPLETE EXAM: XR LUMBAR SPINE COMPLETE CLINICAL HISTORY: LOW BACK PAIN, M54.50. TECHNIQUE: 2D digital imaging was performed of the lumbar spine. Five images were obtained. AP, la teral, right oblique, left oblique and L5-S1 spot views were obtained. COMPARISON: No exams were available for comparison FINDINGS: BONES: No fracture or destructive lesion. There are endplate osteophytes at several levels of the lum bar spine. No facet hypertrophy identified. DISKS: Intervertebral disc spaces are maintained. ALIGNMENT: Lumbar spinal alignment is within normal limits. No spondylolysis or spondylolisthesis. SOFT TISSUE: Normal. IMPRESSION: Mild degenerative changes in the lumbar spine. DATA REPOSITORY: RADIATION DOSE DELIVERED:
== END 2024-04-12 09:30 ==
LOC: DI 09:10
PROVIDERS: PCP Registered Nurse Critical Care Medicine; Visit Provider Nurse Practitioner Family
DX: M54.50 Low back pain, unspecified (principal)
CPT/HCPCS: 72110

== ENCOUNTER 2024-04-12 09:24 | Outpatient (CLI) | payer OTHER, SELFPAY ==
[2024-04-12 08:47] LABS: HCT 39.7 % (36.0-46.0); HGB 13.4 g/dL (11.2-15.7); MCH 28.2 pg (27.0-33.0); MCHC 33.8 % (32.0-36.0); MCV 83 fL (80-95); MPV 10.4 fL (8.0-11.0); Platelet Count 205 10^3/uL (130-400); RBC 4.76 10^6/uL (3.93-5.22); RDW 12.9 % (11.7-14.6); RDW-SD 39.3 fL; WBC 6.86 10^3/uL (4.4-10.8)
[2024-04-12 09:20] LABS: ALT 14 U/L (14-59); AST 11 U/L (15-37); Albumin 3.5 g/dL (3.4-5.0); Alkaline Phosphatase 71 U/L (46-116); Anion Gap 8.1 mmol/L (3-11); BUN 13 mg/dL (7-18); Bilirubin, Total 0.35 mg/dL (0.2-1.0); CO2 28.9 mmol/L (21.0-32.0); CREATININE 1.1 mg/dL (0.55-1.02); Calcium 9.3 mg/dL (8.5-10.1); Chloride 108 mmol/L (98-107); Estimated GFR 63.94 (mL/min/1.73m2); Glucose 80 mg/dL (74-106); Sodium 145 mmol/L (136-145)
== END 2024-04-12 09:25 | disposition home or self-care (01) ==
LOC: LBO 09:24
PROVIDERS: PCP Registered Nurse Critical Care Medicine; Visit Provider Nurse Practitioner Family
DX: M54.50 Low back pain, unspecified (principal)
CPT/HCPCS: 36415; 80053; 85027

== ENCOUNTER 2024-06-03 21:52 | Outpatient (REF) | payer OTHER, SELFPAY ==
[2024-06-03 22:31] LABS: TSH 2.19 uIU/mL (0.36-3.74)
[2024-06-04 18:20] LABS: T4, Free 1.3 ng/dL (0.8-2.2)
[2024-06-04 18:40] LABS: FSH 32.8 mIU/mL (See Note)
== END 2024-06-03 21:53 | disposition home or self-care (01) ==
LOC: NCHCN 21:52
PROVIDERS: PCP Registered Nurse Critical Care Medicine; Visit Provider Family Medicine
DX: R61 Generalized hyperhidrosis (principal); E03.9 Hypothyroidism, unspecified
CPT/HCPCS: 83001; 84439; 84443

== ENCOUNTER 2024-08-29 19:45 | Emergency (ER) | payer OTHER, SELFPAY ==
[2024-08-29 19:46] VITALS: BP 133/82; PULSE 110; RESP 18; TEMP 36.7; O2SAT 98
--- NOTE | 2024-08-29 20:00 | DI.RAD_ITS ---
Exam(s) XR FOOT LT COMPLETE EXAM: XR FOOT LT COMPLETE CLINICAL HISTORY: Left heel pain. TECHNIQUE: 2D digital imaging was performed. Three views. COMPARISON: CR LEFT FOOT COMPLETE from 03/21/2012 FINDINGS: BONES: No acute fracture is present. No bony destructive lesion is seen. Tiny plantar calcaneal spur. Spurring at the dorsal aspect of the navicular. JOINTS: No dislocation present. SOFT TISSUE: Normal. IMPRESSION: Tiny plantar calcaneal spur. No acute abnormality. The preliminary [facility] report was reviewed. DATA REPOSITORY: RADIATION DOSE DELIVERED:
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
--- NOTE | 2024-08-29 21:10 | DI.VRAD_ITS ---
PROCEDURE INFORMATION: Exam: XR Left Foot Exam date and time: 08/29/2024 8:33 PM Age: 43 years old Clinical indication: Injury or trauma; Other: Pain left heel after running down hill; Blunt trauma; Foot TECHNIQUE: Imaging protocol: Radiologic exam of the left foot. Views: 3 or more views. If patient MRI compatible. COMPARISON: No relevant prior studies available. FINDINGS: Bones/joints: Normal. Soft tissues: Normal. IMPRESSION: No evidence for acute abnormality. If pain persists unexplained MRI would be sensitive to characterize for stress fracture Dictated and Authenticated by: Jillian Hampton MD. Orderin Cristal Mac MD
== END 2024-08-29 22:01 | disposition home or self-care (01) ==
PROVIDERS: Emergency Provider Registered Nurse Emergency; PCP Registered Nurse Critical Care Medicine
DX: M79.672 Pain in left foot (principal); X58.XXXA Exposure to other specified factors, initial encounter
CPT/HCPCS: 99283 ×2; 29515; 73630

== ENCOUNTER 2024-09-15 20:31 | Day surgery (SDC) | payer OTHER, SELFPAY ==
[2024-09-15] VITALS (25 sets, daily range): BP systolic 96–155; BP diastolic 52–104; PULSE 55–94; RESP 11–22; TEMP 36.6; O2SAT 94–100
--- NOTE | 2024-09-15 20:30 | RT.EKG_ITS ---
APPROVED REPORT Exam: Resting ECG Reason for Exam: chest pain Patient Location: E HR:110 bpm ECG Measurements Heart Rate 110 AXIS CA 134 P 74 QRSd 79 QRS 59 QT 364 T 67 QTc 556 Conclusion Sinus tachycardia...rate> 99 Ventricular bigeminy...bigeminy string>4 w/ V complexes Prolonged QT interval...QTc >510mS No Occlusion KS
--- NOTE | 2024-09-15 20:32 | W.ED.GENAD ---
Discharge Plan Discharge Details Chief Complaint: Abd Prob Clinical Impression: Cholelithiasis, Acute epigastric pain Primary Care Provider: Jessica Tenorio ED Provider: Stuart Flaherty Home Meds and New Rx's Prescriptions: No Action clonazepam 0.5 MG tablet 1 mg PO PRN levothyroxine 50 MCG tablet 75 mcg PO DAILY esomeprazole magnesium [Nexium] 40 MG capsule,delayed release(DR/EC) 40 mg PO BID sertraline 25 MG tablet 100 mg PO DAILY HPI General Date/Time Provider Initiated Documentation: 09/15/24 20:32. HPI Narrative: MDM Broad differential of acute chest pain tenderness uncomfortable appearing but normothermic and not tachycardic 43-year-old female. ECG nonischemic however will obtain troponins to assess for ACS. Given elevated BMI pancreatitis is on the differential with pain radiating to the back. Patient does have cholelithiasis but no obvious gallbladder wall thickening or sonographic Newell sign. Will obtain CT abdomen pelvis and chest given history of hiatal hernia. His CT scan was reassuring against cholecystitis but patient has persistent pain will consider formal radiology ultrasound. No dysuria nor frequency to suggest UTI. I considered PE however the patient is not short of breath so I did not order D-dimer. She has no signs of AAA so my suspicion is low for ruptured AAA. No trauma to the chest and equal breath sounds without pneumothorax. Not hypotensive nor dialysis patient so my suspicion is low for tamponade. Based on the patient's age and lack of history atrial fibrillation my suspicion is low for mesenteric ischemia. HEART SCORE Chest pain Diagnostic Protocol: [-History/Physical/Gestalt: Slightly Suspicious (0)] [-EKG: Normal and/or unchanged from prior EKG (0)] [-AGE: less than 45 (0)] [- RISK FACTORS: 1 - 2 risk factors (+1)] [-TROPONIN: <= normal limit (0)] - TOTAL SCORE: 1 - Risk Factors: DM, current or recent smoker, HTN, HLD, family hx of CAD, obesity - INTERPRETATION: With a total score of 3 or less, risk of major cardiac event within six weeks 1.7%, likely lower with two negative troponins. 11:[address] scan showing cholelithiasis with distended gallbladder. Given persistent symptoms will observe the patient in the emergency department keep n.p.o. after midnight for formal radiology right upper quadrant ultrasound with possibility of surgical consult based on symptoms and imaging findings in the morning. I ordered her for 4 mg of as needed IV morphine every 4 hours. I updated the patient and her daughter. Will sign patient out to Dr. Rodriguez. HPI This is a patient with a history of hiatal hernia presenting with upper abdominal pain. The patient began experiencing upper abdominal pain around noon after eating, which has progressively worsened. The pain is localized to the upper abdomen and does not radiate, except for some soreness in the back. The patient also reports a sensation of pressure in the chest and nausea. The patient has had similar episodes in the past, with the most recent one occurring 4 years ago. Despite undergoing scans at that time, no cause was identified, and the patient was given morphine for pain relief. The patient reports no unusual activities or falls prior to the onset of the current episode and felt well upon waking this morning. There has been no fever. The patient occasionally experiences shortness of breath, which is attributed to the current pain, but did not have any respiratory issues this afternoon. The patient reports no burning sensation during urination. The patient smokes cigarettes and does not consume alcohol daily. There is no history of drug use beyond prescription medications. The patient has no history of diabetes, high blood pressure, high cholesterol, or personal history of blood clots in the legs or lungs. The patient's grandmother had a heart attack before the age of 65. Exam General: Uncomfortable-appearing in no acute distress speaking in complete sentences. Head: Normocephalic, atraumatic. Eye: Extraocular eye movements intact. No conjunctival injection. No scleral icterus. Ear, nose, mouth, throat: Grossly normal inspection. Normal voice, handling secretions normally. Neck: Trachea midline. Cardiovascular: Well-perfused distal extremities. Regular rate and rhythm Respiratory: Nonlabored respiration. Clear lungs bilaterally Gastrointestinal: Nondistended abdomen. Soft. Epigastric tenderness. No rebound. No guarding. Negative Newell sign. Musculoskeletal: No edema. Moving all 4 extremities spontaneously. Skin: Normal for age and race, grossly normal temperature and turgor. No acute rash. Neurologic: Alert and appropriate, no apparent acute deficits. Psychiatric: Mood and manner are appropriate. Grooming and personal hygiene are appropriate. Related Data Home Medications ?Medication ?Instructions ?Recorded ?Confirmed clonazepam 0.5 mg tablet 1 mg PO PRN 03/27/14 07/06/25 esomeprazole magnesium 40 mg 40 mg PO BID 06/06/13 09/15/24 capsule,delayed release (Nexium) levothyroxine 50 mcg tablet 75 mcg PO DAILY 06/06/13 09/15/24 sertraline 25 mg tablet 100 mg PO DAILY 06/06/13 09/15/24 Allergies Allergy/AdvReac Type Severity Reaction Status Date / Time pork derived (porcine) Allergy Intermediate Other (See Verified 09/15/24 21:17 Comment) topiramate (From Topamax) Allergy Skin Rash Verified 09/15/24 21:17 General SONALI: 4 PFSH All Active Problems (Updated 09/15/24 @ 22:29 by Stuart Flaherty MD) Acute epigastric pain (Acute) Cholelithiasis (Acute) Foot pain, left (Acute) Calcaneal spur of left foot (Acute) Acute chest wall pain (Acute) PTSD (post-traumatic stress disorder) (Acute) Hypothyroidism (Chronic) Depression (Chronic) Anxiety (Chronic) Neck pain (Acute) Surgical History History of bilateral tubal ligation History of hysterectomy Social History Smoking/Tobacco Use Status: Former Tobacco Use Smoking risk assessment performed?: Yes Alcohol Intake: current Alcohol Intake frequency: holidays/special occasions only Drug use: Never Substance use type: does not use Housing: house Do you feel safe at home: Yes Do you feel safe in your relationship?: Yes POCUS Exam (ED) Limited Cardiac Exam DATE OF EXAM: 09/15/24 TIME OF EXAM: 21:17 PROVIDER THAT PERFORMED THE STUDY: Stuart Flaherty IS THIS A REPEAT EXAM DURING THIS ENCOUNTER: no REASON FOR EXAM: Chest pain VISUALIZED STRUCTURES: Four Chambers, Left ventricle and LVOT VIEW OBTAINED: Apical 4-Chamber, Parasternal long-axis and Subxiphoid PERTINENT FINDINGS/IMPRESSION: No pericardial effusion and No RV dilation DIFFERENTIAL DIAGNOSES: Aortic outflow track less than 4 cm, good squeeze, RV less than LV, no significant pericardial effusion. Exam complete Limited Gallbladder Exam DATE OF EXAM: 10/16/24 TIME OF EXAM: 21:17 PROVIDER THAT PERFORMED THE STUDY: Stuart Flaherty REASON FOR VISIT: Nausea/vomiting VISUALIZED STRUCTURES: Gallbladder PERTINENT FINDINGS/IMPRESSION: Gallstones; No Pericholecystic fluid and No thickening of the gallbladder wall Exam complete Limited Vascular Exam DATE OF EXAM: 09/15/24 TIME OF EXAM: 21:18 PROVIDER THAT PERFORMED THE STUDY: Stuart Flaherty IS THIS A REPEAT EXAM DURING THIS ENCOUNTER: No Vascular Exam: Abdominal aorta REASON FOR EXAM: Abdominal pain Exam complete INCIDENTAL FINDINGS: No signs of AAA
--- NOTE | 2024-09-15 20:45 | DI.CT_ITS ---
Exam(s) CT CHEST/ABD/PEL W EXAM: CT CHEST/ABD/PEL W CLINICAL HISTORY: Abdominal pain hiatal hernia cholelithiasis. TECHNIQUE: Imaging Protocol: Axial computed tomography images with coronal and sagittal reformatted images were created and reviewed. Computer aided detection (CAD) was utilized. CONTRAST MATERIAL: Intravenous: Omnipaque 350 Contrast volume:75 ml Oral: / no COMPARISON: CT CT CHEST/ABD/PEL W from 08/18/2022 FINDINGS: CHEST: Pulmonary parenchyma: No consolidation. No dominant measurable mass. Tracheobronchial tree: No bronchiectasis. No mucous plugging.No bronchial wall thickening. Pleura: No effusion or pneumothorax. Mediastinum: Within normal limits. Pulmonary arteries: No visible emboli. Cardiovascular: No pericardial effusion. Thoracic aorta non-dilated. Bones: Unremarkable for age. No lytic or blastic lesions.No compression fractures. Soft tissues: Unremarkable. ABDOMEN and PELVIS: Liver: Normal density. No suspicious mass. Gallbladder and biliary tract: Cholelithiasis again noted. No evidence of wall thickening. No biliary dilatation. Pancreas: Normal density, no abnormal calcifications or inflammatory process. Spleen: Normal. Kidneys: Normal size, contour and axis. No radiodense stones. No obstructive uropathy. No suspicious masses seen. Adrenal glands: No masses seen. Aorta: Abdominal portion non-dilated. Lymph nodes: Within normal limits. Soft tissues: Stable cyst lateral to left psoas muscle in the upper thigh. Bladder: Nearly empty but unremarkable. Bowel: No obstruction or bowel wall thickening. Appendix normal. Normal quantity of stool. Peritoneal cavity: No ascites. No focal collection. No mesenteric inflammatory response. No free air. Bones: Unremarkable for age. Reproductive organs: Hysterectomy. IMPRESSION: No acute abnormality in the chest, abdomen or pelvis. Cholelithiasis again noted. The preliminary [facility] report was reviewed. RADIATION DOSE DELIVERED: Total DLP DATA REPOSITORY: All CT scans at this facility are submitted to the National Radiology Data Registry (NRDR) Dose Index Registry (DIR) with the [employer] (ACR). RADIATION OPTIMIZATION: All CT scans at this facility use at least one of these dose optimization techniques: automated exposure control; mA and/or kV adjustment per patient size (includes targeted exams where dose is matched to clinical indication); or iterative reconstruction.
[2024-09-15 20:57] LABS: Abs Immature Grans 0.05 10^3/uL (0.0-0.06); HCT 40.9 % (36.0-46.0); HGB 13.5 g/dL (11.2-15.7); Immature Grans % 0.6 %; MCH 27.6 pg (27.0-33.0); MCHC 33.0 % (32.0-36.0); MCV 84 fL (80-95); MPV 10.5 fL (8.0-11.0); Platelet Count 261 10^3/uL (130-400); RBC 4.89 10^6/uL (3.93-5.22); RDW 13.1 % (11.7-14.6); RDW-SD 39.5 fL; WBC 8.91 10^3/uL (4.4-10.8)
[2024-09-15] MEDS: MAGNESIUM SULFATE 2 GM/50 ML BAG IVINF (21:00)
[2024-09-15] MEDS: MORPHine 10 MG/ML VIAL 4 MG IVP (21:00)
[2024-09-15] MEDS: Normal Saline 500 ML IV (21:01)
[2024-09-15] MEDS: Omnipaque 350 MG/ML 100 ML BTL IJ (21:07)
[2024-09-15] MEDS: Normal Saline - Diluent 50 ML VIAL IJ (21:08)
[2024-09-15] MEDS: Normal Saline Flush 10 ML SYR IVP (21:09)
[2024-09-15 21:14] LABS: ALT 20 U/L (14-59); AST 23 U/L (15-37); Albumin 3.8 g/dL (3.4-5.0); Alkaline Phosphatase 73 U/L (46-116); Anion Gap 12.7 mmol/L (3-11); BUN 13 mg/dL (7-18); Bilirubin, Total 0.4 mg/dL (0.2-1.0); CO2 24.3 mmol/L (21.0-32.0); Calcium 9.0 mg/dL (8.5-10.1); Chloride 104 mmol/L (98-107); Estimated GFR 81.35 (mL/min/1.73m2); Glucose 98 mg/dL (74-106); Lipase 39 U/L (<78); Magnesium 2.1 mg/dL (1.8-2.4); Potassium 3.2 mmol/L (3.5-5.1); Sodium 141 mmol/L (136-145); Total Protein 7.4 g/dL (6.4-8.2)
[2024-09-15 21:16] LABS: Troponin I < 4 ng/L (<or=51)
[2024-09-15 21:19] LABS: HCG Qual (Serum) Negative
[2024-09-15] MEDS: HYDROmorphone 2 MG/ML SYR 0.5 MG IVP (21:21)
[2024-09-15] MEDS: Ondansetron 4 MG/2 ML VIAL IVP (21:21)
[2024-09-15] MEDS: Famotidine 20 MG/2 ML VIAL 40 MG IVP (21:28)
[2024-09-15] MEDS: Mylanta Suspension 30 ML CUP PO (21:29)
--- NOTE | 2024-09-15 22:16 | DI.VRAD_ITS ---
PROCEDURE INFORMATION: Exam: CT Chest With Contrast; Diagnostic Exam date and time: 09/15/2024 21:08 Age: 43 years old Clinical indication: Generalized; Other: HX of hiatat hernia; Prior surgery; Surgery date: 6+ months; Surgery type: Hysterectomy; Abdominal pain hiatal hernia cholelithiasis TECHNIQUE: Imaging protocol: Diagnostic computed tomography of the chest with contrast. 3D rendering (Not supervised by radiologist): MIP and/or 3D reconstructed images were created by the technologist. Radiation optimization: All CT scans at this facility use at least one of these dose optimization techniques: automated exposure control; mA and/or kV adjustment per patient size (includes targeted exams where dose is matched to clinical indication); or iterative reconstruction. Contrast material: OMNIPAQUE 35; Contrast volume: 75 ml; Contrast route: INTRAVENOUS (IV); COMPARISON: CT CHEST/ABD/PEL W 08/18/2022 10:29 FINDINGS: Thymus: Minimal residual or recurrent thymic tissue with benign morphology. Lungs: No consolidation. No masses. Pleural spaces: No pneumothorax. No pleural effusion. Heart: No significant cardiomegaly. Esophagus: Trace fluid in the distal esophagus with no wall thickening or esophageal dilation could reflect minor GE reflux or dysmotility. Lymph nodes: No enlarged lymph nodes. Vasculature: No aortic aneurysm. Bones/joints: No acute fracture or subluxation. Soft tissues: No focal soft tissue lesion or collection. IMPRESSION: 1. No acute findings. 2. Minor incidental findings as described. PROCEDURE INFORMATION: Exam: CT Abdomen And Pelvis With Contrast Exam date and time: 09/15/2024 21:08 Age: 43 years old Clinical indication: Generalized; Other: HX of hiatat hernia; Prior surgery; Surgery date: 6+ months; Surgery type: Hysterectomy; Abdominal pain hiatal hernia cholelithiasis TECHNIQUE: Imaging protocol: Computed tomography of the abdomen and pelvis with contrast. 3D rendering (Not supervised by radiologist): MIP and/or 3D reconstructed images were created by the technologist. Radiation optimization: All CT scans at this facility use at least one of these dose optimization techniques: automated exposure control; mA and/or kV adjustment per patient size (includes targeted exams where dose is matched to clinical indication); or iterative reconstruction. Contrast material: OMNIPAQUE 35; Contrast volume: 75 ml; Contrast route: INTRAVENOUS (IV); COMPARISON: CT CHEST/ABD/PEL W 08/18/2022 10:29 FINDINGS: Liver: Benign hepatic cyst(s), no followup necessary. No hepatic masses. Gallbladder and biliary ducts: Distended gallbladder containing numerous stones. Gallbladder measures about 9 cm in length. No significant inflammatory changes on CT. No significant biliary dilation or radiopaque stones in the biliary tree. Pancreas: No ductal dilation. No mass . Spleen: No splenomegaly or suspicious lesions. Adrenal glands: No suspicious mass. Kidneys and ureters: No hydronephrosis. No masses. Stomach and bowel: No obstruction. No mucosal thickening. Appendix: No evidence of appendicitis. Intraperitoneal space: No free air. No significant fluid collection. Vasculature: No abdominal aortic aneurysm. Lymph nodes: No significantly enlarged lymph nodes. Urinary bladder: No gross wall thickening. Reproductive: Hysterectomy. Normal CT appearance of the left adnexa. Normal CT appearance of the right adnexa. Bones/joints: No acute fracture or subluxation. Soft tissues: No suspicious lesions. IMPRESSION: 1. Cholelithiasis and distended gallbladder. Consider workup with ultrasound or MRCP if there is any clinical concern for early calculus cholecystitis and or developing biliary obstruction. 2. Incidental findings as described. Dictated and Authenticated by: Michelle Wolfe MD. Orderin Krystina Davidson MD
[2024-09-15 22:20] LABS: Troponin I < 4 ng/L (<or=51)
--- NOTE | 2024-09-15 23:01 | NUR.NOTE ---
Nursing Note: Pt resting on left side, eyes closed RR even and unlabored. Family at bedside. Good color noted.
[2024-09-16] VITALS (100 sets, daily range): BP systolic 91–150; BP diastolic 44–95; PULSE 63–94; RESP 8–24; TEMP 36.3–37; O2SAT 94–100; BMI 16.2
--- NOTE | 2024-09-16 | DI.US_ITS ---
Exam(s) US ABDOMEN LIMITED EXAM: US ABDOMEN LIMITED CLINICAL HISTORY: Cholelithiasis TECHNIQUE: Ultrasound abdomen performed using standard protocol. COMPARISON: US POCUS EXAM from 09/15/[address] CHEST/ABD/PEL W from 09/15/2024 FINDINGS: There is no ascites evident. LIVER: There are no hepatic lesions evident nor dilatation of intrahepatic ducts. GALLBLADDER/BILIARY: There are multiple small gallstones which exhibits some shadowing and which appear to be imbedded in an area of thickened gallbladder wall near the neck of the gallbladder. The gallbladder wall is mildly thickened at this level to 3-3.9 mm. There is no pericholecystic fluid. The common hepatic duct isupper normal, measuring 6mm at the level of viviane hepatis. Patient was tender over the gallbladder during scanning today. PANCREAS: There is no evidence of pancreatic mass nor dilatation of the pancreatic duct. RIGHT KIDNEY:No evidence of solid mass, calculus, nor hydronephrosis. No cortical cysts evident. IMPRESSION: 1. Cholelithiasis. In addition to an 8 millimeter calculus on the dependent wall of the gallbladder there appear to be multiple smaller gallstones measuring less than 1 cm predominately in the region of the neck of the gallbladder which appear to be partially incorporated into a possible mass at this level. CBD is not dilated. The patient was apparently tender over this area during scanning today. There is no pericholecystic fluid. Surgical consultation is recommended. 2. No other significant ultrasound findings in the right upper quadrant. 3. There is no ascites. DATA REPOSITORY:
[2024-09-16] MEDS: Acetaminophen 500 MG TAB 1000 MG PO (07:38)
--- NOTE | 2024-09-16 07:49 | ED.PROG_ITS ---
Date of service: 09/16/24 Time of Service: 07:49 Medical Decision Making Care assumed from outgoing provider. Patient was seen by prior provider yesterday with concern for right upper quadrant pain and possible cholecystitis or cholelithiasis on CT imaging. This morning the patient is pending a right upper quadrant ultrasound for final disposition. Discussed US with radiologist and reviewd prior ED work up. Concerning for symptomatic cholelithiasis, patient remains tender on exam. Concuslted gen surgery for evaluation and they will take patient for surgical management later today. Abx have been given. Discharge Plan Disposition Patient Disposition: Admit to [facility] Condition: Stable Discharge Details Clinical Impression: Cholelithiasis, Acute epigastric pain Primary Care Provider: Jessica Tenorio ED Provider: Paulo Chiu Home Meds and New Rx's Prescriptions: No Action clonazepam 0.5 MG tablet 1 mg PO PRN levothyroxine 50 MCG tablet 75 mcg PO DAILY esomeprazole magnesium [Nexium] 40 MG capsule,delayed release(DR/EC) 40 mg PO BID sertraline 25 MG tablet 100 mg PO DAILY
--- NOTE | 2024-09-16 09:36 | W.SURGCON ---
Date of service: 09/16/24 Time of Service: 09:36 Assessment and Plan Assessment and plan (1) Acute epigastric pain: Status: Acute Assessment and plan: 43-year-old woman with acute on likely chronic cholecystitis in the setting of gallstones based off of my examination today. She is hemodynamically stable. Her LFTs are normal. We had a detailed conversation about gallbladder function and purpose as well as surgical management of the gallbladder in the setting of symptomatic gallstones and likely infection. Answered all of her questions and she was in agreement with the indications, the likely benefits as well as the possible risks of gallbladder surgery and wants to proceed. Overall plan: Laparoscopic cholecystectomy History of Present Illness Narrative: Christine is a healthy 43-year-old woman who has been experiencing on and off epigastric and right upper quadrant abdominal pain here and there for a number of years. She has never had an actual gallbladder attack but has had discussions with her PCP about needing to have the gallbladder removed. Yesterday she started experiencing pretty significant abdominal pain that was very severe and because of its severity she came to the emergency department. It has improved somewhat overnight but remains present and uncomfortable. An ultrasound done today showed slight wall thickening and no pericholecystic fluid but gallstones were seen as well as an impacted gallstone in the neck. Her only prior surgery is that of a laparoscopic hysterectomy done at [facility]. PFSH All Active Problems Acute epigastric pain (Acute) Cholelithiasis (Acute) Foot pain, left (Acute) Calcaneal spur of left foot (Acute) Acute chest wall pain (Acute) PTSD (post-traumatic stress disorder) (Acute) Hypothyroidism (Chronic) Depression (Chronic) Anxiety (Chronic) Neck pain (Acute) Surgical History History of bilateral tubal ligation History of hysterectomy Social History Smoking/Tobacco Use Status: Current every day Tobacco Type: cigarettes Smoking risk assessment performed?: Yes Alcohol Intake: current Alcohol Intake frequency: holidays/special occasions only Drug use: Never Substance use type: does not use Details: Vape with nicotine Housing: house Do you feel safe in your relationship?: Yes Exam Narrative Exam Narrative: Gen: Non-toxic, comfortable and interactive Neuro: Alert and oriented x3 Psych: Good mood and affect. Good insight and understanding into condition. Chest: Non-labored breathing, no wheezing, no visible shortness of breath. Heart: Regular Abdomen: Soft, nondistended and while overall not tender, she does have a very focal Newell sign on careful examination. Results Last Vital Signs Temp 97.9 F 09/15/24 21:06 Pulse 89 09/16/24 07:40 Resp 15 09/16/24 07:40 BP 123/81 09/16/24 07:31 Pulse Ox 99 09/16/24 07:40 Labs 09/15/24 20:44 09/15/24 20:44 Labs: Laboratory Results - last 24 hr 09/15/24 09/15/24 09/15/24 20:44 21:55 23:49 WBC 8.91 RBC 4.89 Hgb 13.5 Hct 40.9 MCV 84 MCH 27.6 MCHC 33.0 RDW 13.1 Plt Count 261 MPV 10.5 Immature Gran % 0.6 Neutrophils % 52.0 Lymphocytes % 38.4 Monocytes % 6.1 Eosinophils % 2.2 Basophils % 0.7 Nucleated RBC % 0.0 Absolute Neutrophils 4.64 Absolute Lymphocytes 3.42 H Absolute Monocytes 0.54 Absolute Eosinophils 0.20 Absolute Basophils 0.06 Sodium 141 Potassium 3.2 L Chloride 104 Carbon Dioxide 24.3 Anion Gap 12.7 H BUN 13 Creatinine 0.9 Est GFR (CKD-EPI 2020) 81.35 Glucose 98 Calcium 9.0 Magnesium 2.1 Total Bilirubin 0.4 AST 23 ALT 20 Alkaline Phosphatase 73 Troponin I < 4 < 4 Cancelled Total Protein 7.4 Albumin 3.8 Lipase 39 Serum HCG, Qual Negative
[2024-09-16] MEDS: PIPERACILLIN/TAZO 4.5 GM in Normal Saline 100 ML IVPB ×2 (10:03→16:41)
[2024-09-16] MEDS: Normal Saline 1,000 ML 125 ML IV (10:04)
[2024-09-16] MEDS: MORPHine 10 MG/ML VIAL 4 MG IVP (10:19)
[2024-09-16] MEDS: Lactated Ringers 1,000 ML 125 ML IV ×2 (10:55→15:50)
[2024-09-16] MEDS: Heparin 5,000 UNITS/ML VIAL 5000 UNITS SC (11:43)
--- NOTE | 2024-09-16 12:01 | NUR.NOTE ---
Patient was transfered to the DS via stretcher. Report was given to Vanessa in the DS. Patient is very tearful relatives are present at this time with patien
--- NOTE | 2024-09-16 12:31 | ANES.PREOP_ITS ---
General Info Date of Service Date Performed: 09/16/24 Height: 5 ft 3 in Weight: 41.73 kg Body Mass Index (BMI): 16.2 Surgical Procedure: Operation Date: 09/16/24 14:40 Proposed Procedure Side Surgeon p Cholecystectomy Laparoscopic Jose L Marcial MD Meds Allergies and Home Medications Allergies Allergy/AdvReac Type Severity Reaction Status Date / Time pork derived (porcine) Allergy Intermediate Other (See Verified 09/15/24 21:17 Comment) topiramate (From Topamax) Allergy Skin Rash Verified 09/15/24 21:17 aripiprazole (From Abilify) AdvReac Agitation Unverified 09/16/24 12:00 Home Medication ?Medication ?Instructions ?Recorded clonazepam 0.5 mg tablet 1 mg PO PRN 06/06/13 esomeprazole magnesium 40 mg 40 mg PO BID 06/06/13 capsule,delayed release (Nexium) levothyroxine 50 mcg tablet 75 mcg PO DAILY 06/06/13 sertraline 25 mg tablet 100 mg PO DAILY 06/06/13 Current Visit Medications: Current Medications Generic Name Dose Route Start Last Admin Trade Name Freq PRN Reason Stop Dose Admin Ringer's Solution 1,000 mls @ 125 mls/hr 09/16/24 10:00 09/16/24 10:55 IV 125 mls/hr INFUSION KATIA Administration Iohexol 100 ml 09/15/24 21:15 09/15/24 21:07 Omnipaque 350 Mg/Ml 100 Ml Btl IJ 10/15/24 23:59 75 ml DIRECTED KATIA Administration Morphine Sulfate 4 mg 09/15/24 22:25 09/16/24 10:19 Morphine 10 Mg/Ml Vial IVP 4 mg Q2H PRN Administration Sodium Chloride 50 ml 09/15/24 21:15 09/15/24 21:08 Normal Saline - Diluent 50 Ml Vial IJ 50 ml .FOR DI USE KATIA Administration Sodium Chloride 0 ml 09/15/24 21:08 09/15/24 21:09 Normal Saline Flush 10 Ml Syr IVP 10 ml PRN PRN Administration PFSH Active Problems Active Problems: Problem Status Onset Code Acute epigastric pain Acute R10.13 Cholelithiasis Acute K80.20 Foot pain, left Acute M79.672 Calcaneal spur of left foot Acute M77.32 Acute chest wall pain Acute R07.89 PTSD (post-traumatic stress disorder) Acute F43.10 Hypothyroidism Chronic E03.9 Depression Chronic F32.9 Anxiety Chronic F41.9 Neck pain Acute M54.2 Surgical History Surgical History History of bilateral tubal ligation History of hysterectomy Tobacco Smoking/Tobacco Use Status: Current every day Tobacco Type: cigarettes Alcohol Alcohol Intake: current Alcohol intake frequency: holidays/special occasions only Substance Use Substance use: Never Substance use type: does not use Details: Vape with nicotine Vital Signs and Lab Results Vital Signs Most Recent Vital Signs in EMR: Most Recent Vital Signs Temp Pulse Resp BP Pulse Ox 36.4 C L 71 16 112/52 L 99 09/16/24 12:02 09/16/24 12:02 09/16/24 12:02 09/16/24 12:02 09/16/24 12:02 Lab Results 09/15/24 20:44 09/15/24 20:44 Complete Blood Count: 2 WBC, (4.4-10.8) 8.91 10^3/uL 09/15/24, 20:44 RBC, (3.93-5.22) 4.89 10^6/uL 09/15/24, 20:44 Hgb, (11.2-15.7) 13.5 g/dL 09/15/24, 20:44 Hct, (36.0-46.0) 40.9 % 09/15/24, 20:44 Plt Count, (130-400) 261 10^3/uL 09/15/24, 20:44 Complete Metabolic Panel: 2 Sodium, (136-145) 141 mmol/L 09/15/24, 20:44 Potassium, (3.5-5.1) 3.2 mmol/L L 09/15/24, 20:44 Chloride, (98-107) 104 mmol/L 09/15/24, 20:44 Carbon Dioxide, (21.0-32.0) 24.3 mmol/L 09/15/24, 20 :44 BUN, (7-18) 13 mg/dL 09/15/24, 20:44 Creatinine, (0.55-1.02) 0.9 mg/dL 09/15/24, 20:44 Est GFR (CKD-EPI 2020), (mL/min/1.73m2) 81.35 09/15/24, :44 Magnesium, (1.8-2.4) 2.1 mg/dL 09/15/24, :44 Calcium, (8.5-10.1) 9.0 mg/dL 09/15/24, : Albumin, (3.4-5.0) 3.8 g/dL 09/15/24, : Glucose, (74-106) 98 mg/dL 09/15/24, :44 Liver Function Panel: 2 ALT, (14-59) 20 U/L 09/15/24, :44 AST, (15-37) 23 U/L 09/15/24, : Cardiac Panel: 2 Troponin I, (<or=51) < 4 ng/L 09/15/24 Pancreas Panel: 2 Lipase, (<78) 39 U/L 09/15/24, : Panel: 2 Serum HCG, Qual Negative 09/15/24, :44 Anesthesia Assessment and Plan Anesthesia History Personal History: No History of Anesthesia Complications Family History: No Family History of Anesthesia Complications Exercise Tolerance Exercise Tolerance: Metabolic Equivalents>4 Cardiac & Pulmonary Exam Cardiac Exam: Normal S1/S2 Heart Sounds Pulmonary Exam: Clear Bilateral Breath Sounds Implantable Cardiac Device Does patient have a Pacemaker or an ICD?: No Airway Exam Known Difficult Airway: No Mallampati Class: 3 Mouth Opening: Narrow (< 3cm) Thyromental Distance: Greater than 3 cm Neck Range of Motion: Full ROM Neck Circumference: Normal Teeth Condition: Normal Dentition ASA Classification ASA Score: ASA 2 Emergency Case?: No NPO Status NPO Status: NPO Clears >2 hours, Solids >8 hours Status Status: Negative HCG Anesthesia Plan Resuscitation Status: Full Code Anesthesia Technique: General Anesthesia Airway Planned: Endotracheal Tube Monitors Used: Standard Monitors Preoperative Comments:: 43 yo female for lap caitlin from the ED. Sig PMHx: GERD (Nexium. questionable controlled), hypothyroid (levothyroxine), depression/anxiety, PTSD. smoker. EKG: sinus tach.
--- NOTE | 2024-09-16 15:51 | W.PM.OP ---
Operative Note Operative Note Refer to Anesthesia Record Procedure Description: Procedures performed: 1. Laparoscopic cholecystectomy Pre-op diagnosis: Acute Cholecystitis Postoperative diagnosis: Same Surgeon: Zacarias Marcial Anesthesia: [employer] Worker: Viky Indication for procedure: 43 yo woman with acute RUQ pain in setting of gallstones and clinical suspicion for acute cholecystitis FINDINGS: Mildly inflamed, non-distended GB with palpable stones, copious pericholecystic fluid in the cystic place and between liver and GB. Normal biliary anatomy. Specimens: 1. Gallbladder Complications: None Blood loss: 10 cc Urine output: Not measured Implants/drains: None Procedure in detail: Patient gave written consent and was in agreement with the indications, the likely benefits as well as the potential risks of surgery. They were taken back to the operating room where anesthesia was administered and was tolerated well. We positioned the patient supine on the operating room table, arms out and we then prepped and draped in sterile fashion. We confirmed DVT prophylaxis as well as antibiotics had been administered. When we were all in agreement with our timeout we started the procedure. Local anesthetic was injected at the umbilicus. A small stab incision was made within the umbilicus and a 5 mm trocar was used to enter the abdominal cavity. Insufflation was performed which was tolerated well. 2 more trocars were placed under direct visualization in the right hemiabdomen. Local anesthetic was also given in each of the sites. A 12 mm port was placed in the epigastrium under visualization. There was reactive?appearing fluid in the gallbladder fossa and along the right paracolic gutter at the liver margin. There was no evidence of inflammation anywhere else and I inspected the appendix and it was normal. The fundus of the gallbladder was grasped and retracted towards the patient's left shoulder cephalad. This nicely exposed the biliary plate and the relevant anatomy. A combination of blunt and electrocautery dissection was performed isolating the cystic duct and the cystic artery. Significant pericholecystic fluid was encountered in this space. The entire cystic plate was cleared off confirming only 2 structures seen going into the gallbladder. These were clipped and divided. I then removed the rest of the gallbladder off the liver bed using electrocautery. Here also, copious pericholecystic fluid was present. Once I had the gallbladder off, it was placed in an Endo Catch bag and removed from the abdominal cavity. The specimen was passed off the back table and placed in formalin. I then checked the gallbladder fossa for any bile leaking or any bleeding. Hemostasis was excellent and there was no evidence of any bile leaking from the bed. The 12 mm port site was then closed with 0 Vicryl in the fascia. I rechecked for hemostasis 1 last time and it remained excellent. We released pneumoperitoneum. I removed the 5 mm trocars. The skin was closed with running Monocryl and Dermabond was placed on top of each site. The patient tolerated the procedure well. The sponge, instruments and sharps counts were correct x3 at the end of the procedure. He was extubated and taken to the PACU in hemodynamically stable condition. Date of Procedure: 09/16/24
--- NOTE | 2024-09-16 15:51 | W.PM.DSUDISC ---
Date of service: 09/16/24 Discharge Plan Disposition Patient Disposition: Home Condition: Good Discharge Details Reason For Visit: GALL BLADDER Attending Provider: Jose L Marcial Primary Care Provider: Jessica Tenorio Home Meds and New Rx's Prescriptions: No Action clonazepam 0.5 MG tablet 1 mg PO PRN levothyroxine 50 MCG tablet 75 mcg PO DAILY esomeprazole magnesium [Nexium] 40 MG capsule,delayed release(DR/EC) 40 mg PO BID sertraline 25 MG tablet 100 mg PO DAILY Discharge Instructions Additional Instructions: FINDINGS: Your gallbladder was infected. It was removed without any complications. INSTRUCTIONS: Incisions: Keep clean and dry but they do not need to be covered. It is okay to shower but no tub bathing for 1 week. You can peel the glue off after 1 week. Activity: As tolerated. There are no restrictions. Return to work, as tolerated in the next few days. If you need a work note call the surgery office. Diet: Regular diet as tolerated starting tomorrow. Some people do better with a low-fat, low-cholesterol, non-grease diet for a month or so. Medications: Resume all of your usual/regular home medications Follow-up: Follow-up is optional. If you are having any issues or concerns call the surgery office immediately. If you want to have a routine follow-up that is perfectly fine and you can call and schedule an. If everything is otherwise going well, you do not need to follow-up. Pain control: Take Tylenol, 1000 mg, every 6 hours on a schedule for the next 3 days. You can use ibuprofen in addition to Tylenol and use the narcotic medication only as necessary for pain preventing you from sleeping. Overall: Symptoms should not be worsening. If you have any difficulty breathing or you have return of symptoms of brought you to the hospital or your pain is otherwise worsening each day and you should call the doctor's office or come into the hospital to be checked out. Activity:: Activity as Tolerated Diet:: Clear liquids only for today. Discharge Orders Discharge Orders: Discharge Order (Routine); Ordered 09/16/24 Ordered By: Jose L Marcial DS: Diagnosis Discharge Diagnosis (1) Acute epigastric pain: Status: Acute
[2024-09-16] MEDS: Bupivacaine 0.25% Pres-Free 30 ML VIAL (16:25)
--- NOTE | 2024-09-16 16:31 | GB_PTH ---
PATIENT: Hanna Hooks LOC: [facility] U#:[id number] AGE/SX: 43/F ROOM: RE09/16/[address]: Jose L Marcial : 1980 BED: DIS: 09/16/2024 SPEC #: [id number] RECD: 09/17/24 12:14 STATUS: MERCEDES RESharla #: [id number] RALPH: 09/16/24 16:[address]: Jose L Marcial DEPT: Surgical Specimen RECD BY: Rhonda Mcmullen ENTERED: 09/17/24 12:15 SP TYPE: GB OTHR DR: Jessica Tenorio Tissues: 1 - GALLBLADDER Procedures: GROSS AND MICRO LEVEL 3 Comments: [id number]
[2024-09-16] MEDS: ACETAMINOPHEN 1,000 MG/100 ML BAG 400 MG IVPB (16:54)
--- NOTE | 2024-09-16 17:59 | W.ANESPOSTOP ---
Postoperative Evaluation Date, Time and Location Date Performed: 09/16/24 Time Performed: 17:59 Patient Location: Day Surgery Unit Vital Signs Most Recent Imported Vital Signs: Most Recent Vital Signs Temp Pulse Resp BP Pulse Ox 36.8 C 67 16 112/44 L 98 09/16/24 17:37 09/16/24 17:37 09/16/24 17:37 09/16/24 17:37 09/16/24 17:37 Pain Score Most Recent Pain Score: Most Recent Pain Score Pain Level 5 09/16/24 17:37 Assessment Mental Status: Awake (Alert & Oriented to Patient Baseline) Airway and Respiratory Function: Patent airway with normal (patient baseline) respiratory exam Cardiovascular Function: Hemodynamically Stable Hydration Status: Adequately Hydrated Nausea & Vomiting: No Nausea or Vomiting Pain: Pain is tolerable per patient Peripheral Nerve Block: Patient did not receive a nerve block
== END 2024-09-16 20:46 | disposition home or self-care (01) ==
LOC: ER 09-16 10:00 → SUR 09-16 12:21 → MS 09-16 18:19
PROVIDERS: Emergency Medicine; Emergency Provider Emergency Medicine; PCP Family Medicine; Visit Provider Student in an Organized Health Care Education/Training Program
PROC: 0FT44ZZ Resection of Gallbladder, Percutaneous Endoscopic Approach (ICD-10-PCS; CPT 47562; principal; 2024-09-16 14:30)
DX: K80.12 Calculus of gallbladder with acute and chronic cholecystitis without obstruction (principal); K21.9 Gastro-esophageal reflux disease without esophagitis; R00.0 Tachycardia, unspecified
CPT/HCPCS: 47562; 00123; 74177; 76705; 76775; 80053; 83690; 93005; 93308; 71260; 83735; 84484; 84703; 85025; 88304; 93010; J0131; J0665; J1100; J1171; J1644; J1885; J2003; J2250; J2270; J2405; J2543; J2704; J3010; J3475; J3490

== ENCOUNTER 2024-09-20 20:44 | Emergency (ER) | payer OTHER, SELFPAY ==
[2024-09-20] VITALS (12 sets, daily range): BP systolic 107–113; BP diastolic 23–69; PULSE 61–92; RESP 9–20; TEMP 36.6–36.9; O2SAT 98–100
--- NOTE | 2024-09-20 21:01 | W.ED.GENAD ---
Discharge Plan Disposition Patient Disposition: Home Condition: Good Discharge Details Clinical Impression: Acute epigastric pain, Transaminitis Primary Care Provider: Jessica Tenorio ED Provider: Harvinder Gregg Home Meds and New Rx's Prescriptions: No Action clonazepam 0.5 MG tablet 1 mg PO PRN levothyroxine 50 MCG tablet 75 mcg PO DAILY esomeprazole magnesium [Nexium] 40 MG capsule,delayed release(DR/EC) 40 mg PO BID sertraline 25 MG tablet 100 mg PO DAILY Discharge Instructions Instructions: Abdominal pain Additional Instructions: At this time your laboratory workup shows elevation of the liver numbers. Our surgical colleagues feel that this may be secondary to the operative procedure that was performed. Please follow-up closely with your surgeon next week for reassessment of your lab values to make sure they are trending in the appropriate direction. Please stick with a bland diet. Avoid any greasy or tomato-based products. If you notice any worsening of your symptoms, or any new symptoms such as vomiting, diarrhea, fever, chills, shortness of breath, chest pain, numbness, weakness, or fainting , please return immediately to the emergency department for reevaluation. Please follow up with your primary care provider as soon as possible for reassessment and reevaluation. As always, it was a pleasure participating in your medical care today. Referrals: Jessica Tenorio [Primary Care Provider, Medicine] HPI General Date/Time Provider Initiated Documentation: 09/20/24 20:44. HPI Narrative: 43-year-old female with a past medical history of PTSD, hypothyroidism, hysterectomy, depression, anxiety, and recent cholecystectomy performed on 09/16/[address] Marcial, presents today for evaluation of abdominal pain. Patient was discharged without any complication. She states that since then she has had persistent continuous pain. Pain is located in the epigastric region. It is sharp in nature, she has nausea but no vomiting. History is limited secondary to her current symptomatology is from the epigastric discomfort. She denies any hematemesis or diarrhea. No other complaints at this time. No other modifying factors. Related Data Home Medications ?Medication ?Instructions ?Recorded ?Confirmed clonazepam 0.5 mg tablet 1 mg PO PRN 06/06/13 09/20/24 esomeprazole magnesium 40 mg 40 mg PO BID 06/06/13 09/20/24 capsule,delayed release (Nexium) levothyroxine 50 mcg tablet 75 mcg PO DAILY 06/06/13 09/20/24 sertraline 25 mg tablet 100 mg PO DAILY 06/06/13 09/20/24 Allergies Allergy/AdvReac Type Severity Reaction Status Date / Time pork derived (porcine) Allergy Intermediate Other (See Verified 09/20/24 20:52 Comment) topiramate (From Topamax) Allergy Skin Rash Verified 09/20/24 20:52 aripiprazole (From Abilify) AdvReac Agitation Verified 09/20/24 20:52 General Stated Complaint: Abd Prob SONALI: 3 Exam Narrative Exam Narrative: 1.Const: Well-nourished, Well-developed, appearing stated age 2.Eyes: PERRL, no conjunctival injection, and symmetrical lids. 3.ENT: Atraumatic external nose and ears. Moist MM. Neck: Symmetric, trachea midline, No thyromegaly. 4.CVS: +S1/S2, Peripheral pulses 2+ and equal in all extremities. Brisk capillary refill in all extremities. 5.RESP: Unlabored respiratory effort. Clear to auscultation bilaterally. No wheezes rales or rhonchi 6.GI: Soft, nondistended, postoperative sites are clean dry and intact. Mild epigastric discomfort on palpation, no lower abdominal tenderness. 7.MSK: Normocephalic/Atraumatic, Extremities w/o deformity or ttp No cyanosis or clubbing, Normal movement of all extremities 8.Skin: Warm, Dry. No rashes or lesions. 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 Sensation grossly intact, no focal neurologic deficits. 10.Psych: (AAO) x3. Appropriate mood and affect Course Vital Signs Vital signs: Vital Signs Temperature 36.6 C 09/20/24 20:46 Pulse 91 H 09/20/24 20:46 Respiratory Rate 20 09/20/24 20:46 Blood Pressure 113/55 L 09/20/24 20:46 Pulse Oximetry 98 09/20/24 20:46 Temperature 36.9 C 09/20/24 20:53 Pulse 83 09/20/24 20:53 Respiratory Rate 20 09/20/24 20:53 Blood Pressure 113/55 L 09/20/24 20:53 Pulse Oximetry 99 09/20/24 20:53 Oxygen Delivery Method Nasal Cannula 09/20/24 20:46 Pain Level 10 09/20/24 20:53 Medical Decision Making 43-year-old female with a past medical history of PTSD, hypothyroidism, hysterectomy, depression, anxiety, and recent cholecystectomy performed on 09/16/[address] Marcial, presents today for evaluation of abdominal pain. Patient was discharged without any complication. She states that since then she has had persistent continuous pain. Pain is located in the epigastric region. It is sharp in nature, she has nausea but no vomiting. History is limited secondary to her current symptomatology is from the epigastric discomfort. She denies any hematemesis or diarrhea. No other complaints at this time. No other modifying factors. Exam demonstrates stable female, stable vital signs, no hypotension or severe tachycardia. Mild epigastric discomfort, postoperative sites are clean dry and intact otherwise. Differential includes postoperative pain, infection, abscess, obstruction, pancreatitis. We will get labs, rehydrate treat her pain, monitor closely and reassess. 11:55 PM Laboratory workup has returned, no white count bandemia or left shift, initial lactate was elevated but after liter fluids repeat lactate is normal at 1.1. Electrolytes normal except for slightly low potassium at 3.1. She was given 40 of mEq oral potassium and 20 mEq IV potassium. She tolerated this well. Bilirubin normal, transaminases were elevated for an AST of 228 and ALT of 147, with an alk phos of 179. Troponin and EKG are benign, procalcitonin normal. No signs of cardiac dysfunction, no other abnormality there. Urinalysis negative for infection. Hepatitis screen has been sent. CT scan shows evidence of cholecystectomy, with some edematous changes in the surgical bed but no abscess at this time. There is a small left adrenal adenoma, diverticulosis, but no other acute component. On reassessment after medications patient is feeling much better and her pain is completely resolved. Vital signs remained stable. She tolerated p.o. of soda, ice, and oral potassium. No vomiting or return of the pain. I did contact on-call surgery and discussed case with Dr. Morelos. He reviewed the images, labs, and the postoperative report. He sees no indication for operative intervention at this time. We did contact the radiologist again, and they do not see any evidence of ductal pathology, and this certainly does correlate with the lack of bilirubin elevation. Dr. Morelos feels that the transaminitis is likely secondary to the irritation inflammation from the operative component. Patient's pain is around the surgical incision site in the epigastrium. Lidoderm patch was applied. At this time there is no evidence of life-threatening etiology, abscess, cardiac pathology, obstruction, or other concerning abnormality to suggest significant postoperative surgical complication requiring antibiotics or interventions. I had a very long conversation with family discussing all of this. They had many appropriate questions and we discussed these. does have some concern that he finds it atypical that the pain today was the same pain that happened when patient had her gallbladder out. I did reassure him of the findings that was noted, the conversations with the surgeon, and her current laboratory workup and clinical status. Understanding this, I also had a very long follow-up conversation with them regarding the importance of close return and prompt return if her symptoms return or she has any worsening of her symptomatology as there could be an underlying etiology that is not clearly evident now with her current diagnostic capabilities. Patient and family understand this. Patient will be discharged home at this time as her pain has resolved and she is notably stable with no clinical evidence to suggest acute life-threatening etiology. Discussed red flags for which to return. I have extensively reviewed the treatment plan and discharge instructions with the patient and their family. I have addressed all patient concerns at this time. The patient and family was made aware of what symptoms to monitor for that would warrant a return to the emergency department. Discussed the plan with the patient and family, they demonstrate verbal understanding and agreement with our assessment and plan at this time. The documentation in this chart was dictated using [employer] dictation software. Please excuse any dictation errors. FINDINGS: Liver: Normal. No mass. Gallbladder and biliary ducts: Status post cholecystectomy. Pancreas: Normal. No ductal dilation. Spleen: Normal. No splenomegaly. Adrenal glands: Small left adrenal nodule measuring 1.5 cm and consistent with a adrenal adenoma. In the absence of additional risk factors no further imaging follow-up is necessary. Kidneys and ureters: Normal. No hydronephrosis. Stomach and bowel: Sigmoid diverticulosis. No CT evidence for diverticulitis. Appendix: No evidence of appendicitis. Intraperitoneal space: Unremarkable. No free air. No significant fluid collection. Vasculature: Unremarkable. No abdominal aortic aneurysm. Lymph nodes: Unremarkable. No enlarged lymph node Urinary bladder: Unremarkable as visualized. Reproductive: Unremarkable as visualized. Bones/joints: Unremarkable. No acute fracture. Soft tissues: Unremarkable. Other findings: In the surgical bed ill-defined edematous changes and fluid is noted without discrete abscess. IMPRESSION: 1. Status post cholecystectomy with a small amount of fluid and edematous changes identified in the surgical bed. No discrete abscess identified in the present time. 2. Small left adrenal adenoma as detailed above. No further imaging follow-up is necessary. 3. Sigmoid diverticulosis. Thank you for allowing us to participate in the care of your patient. Dictated and Authenticated by: Omero Joy MD 09/20/2024 10:28 PM Eastern Time ([place] & [place]) PFS All Active Problems (Updated 09/21/24 @ 00:04 by Harvinder Gregg DO) Transaminitis (Acute) Acute epigastric pain (Acute) Acute epigastric pain (Acute) Cholelithiasis (Acute) Foot pain, left (Acute) Calcaneal spur of left foot (Acute) Acute chest wall pain (Acute) PTSD (post-traumatic stress disorder) (Acute) Hypothyroidism (Chronic) Depression (Chronic) Anxiety (Chronic) Neck pain (Acute) Surgical History History of bilateral tubal ligation History of hysterectomy Social History Smoking/Tobacco Use Status: Current every day Tobacco Type: cigarettes Smoking risk assessment performed?: Yes Alcohol Intake: current Alcohol Intake frequency: holidays/special occasions only Drug use: Never Substance use type: does not use Details: Vape with nicotine Housing: house Do you feel safe in your relationship?: Yes
[2024-09-20 21:20] LABS: Abs Immature Grans 0.07 10^3/uL (0.0-0.06); HCT 34.6 % (36.0-46.0); HGB 12.0 g/dL (11.2-15.7); Immature Grans % 0.8 %; MCH 28.1 pg (27.0-33.0); MCHC 34.7 % (32.0-36.0); MCV 81 fL (80-95); MPV 10.0 fL (8.0-11.0); Platelet Count 224 10^3/uL (130-400); RBC 4.27 10^6/uL (3.93-5.22); RDW 12.9 % (11.7-14.6); RDW-SD 37.7 fL; WBC 8.59 10^3/uL (4.4-10.8)
[2024-09-20] MEDS: Lactated Ringers 1,000 ML 1000 ML IV (21:26)
[2024-09-20] MEDS: Ketorolac 15 MG/ML VIAL IVP (21:27)
[2024-09-20] MEDS: Ondansetron 4 MG/2 ML VIAL IVP (21:27)
[2024-09-20] MEDS: MORPHine 4 MG/ML SYR IVP (21:27)
[2024-09-20] MEDS: Normal Saline - Diluent 50 ML VIAL IJ (21:35)
[2024-09-20] MEDS: Omnipaque 350 MG/ML 100 ML BTL 75 ML IJ (21:38)
--- NOTE | 2024-09-20 21:44 | DI.CT_ITS ---
Exam(s) CT ABDOMEN PELVIS W EXAM: CT ABDOMEN PELVIS W CLINICAL HISTORY: Postoperative epigastric pain postcholecystectomy. TECHNIQUE: Imaging Protocol: Axial computed tomography images with coronal and sagittal reformatted images were created and reviewed CONTRAST MATERIAL: Intravenous: Omnipaque 350 Contrast volume:75 ml Oral: no CT CT CHEST/ABD/PEL W from 08/09/[address] CHEST/ABD/PEL W from 09/15/2024 FINDINGS: ABDOMEN and PELVIS: Lung Bases: No acute findings. Liver: Normal density. No suspicious mass. Gallbladder and biliary tract: Surgical clips now present related to recent cholecystectomy. There is small amount of fluid in the gallbladder fossa, within normal limits for recent surgery. No drainable fluid collection or abscess. No biliary dilation. Pancreas: Normal density. No abnormal calcifications or inflammatory process. No evidence of mass. Spleen: Normal. Kidneys: Normal size, contour and axis. No radiodense stones. No obstructive uropathy. No suspicious masses seen. Adrenal glands: Tiny left a adrenal lesion unchanged from 2022, likely adenoma. No follow-up recommended. Vasculature: Abdominal aorta non-dilated. Soft tissues: Mild stranding in the soft tissues of the right upper quadrant related to recent cholecystectomy. No abnormal fluid collection. Bladder: No gross wall thickening. No calculi.No focal mass. Bowel: No obstruction. No bowel wall thickening. Appendix normal. Normal quantity of stool. Peritoneal cavity: No ascites. No focal collection. No mesenteric inflammatory response. No free air. Bones: Unremarkable for age. Reproductive organs: Hysterectomy. Lymph nodes: No pathologically enlarged lymph nodes. IMPRESSION:: Status post cholecystectomy. Small amount of fluid in the gallbladder fossa appears within normal limits for recent surgery. No abscess or drainable collection. No biliary dilatation. The preliminary [facility] report was reviewed. RADIATION DOSE DELIVERED: Total DLP DATA REPOSITORY: All CT scans at this facility are submitted to the National Radiology Data Registry (NRDR) Dose Index Registry (DIR) with the [employer] (A[employer]). RADIATION OPTIMIZATION: All CT scans at this facility use at least one of these dose optimization techniques: automated exposure control; mA and/or kV adjustment per patient size (includes targeted exams where dose is matched to clinical indication); or iterative reconstruction.
[2024-09-20 22:03] LABS: ALT 147 U/L (14-59); AST 228 U/L (15-37); Albumin 3.4 g/dL (3.4-5.0); Alkaline Phosphatase 179 U/L (46-116); Anion Gap 12.6 mmol/L (3-11); BUN 7 mg/dL (7-18); Bilirubin, Total 0.9 mg/dL (0.2-1.0); CO2 23.4 mmol/L (21.0-32.0); Calcium 9.0 mg/dL (8.5-10.1); Chloride 106 mmol/L (98-107); Estimated GFR 71.69 (mL/min/1.73m2); Glucose 106 mg/dL (74-106); Lipase 53 U/L (<78); Potassium 3.1 mmol/L (3.5-5.1); Sodium 142 mmol/L (136-145); Total Protein 6.7 g/dL (6.4-8.2)
[2024-09-20 22:16] LABS: Procalcitonin < 0.10 ng/mL
--- NOTE | 2024-09-20 22:28 | DI.[facility]_ITS ---
PROCEDURE INFORMATION: Exam: CT Abdomen And Pelvis With Contrast Exam date and time: 09/20/2024 9:31 PM Age: 43 years old Clinical indication: Abdominal pain; Prior surgery; Surgery date: 3-7 days post-operative; Postoperative epigastric pain postcholecystectomy TECHNIQUE: Imaging protocol: Computed tomography of the abdomen and pelvis with contrast. Radiation optimization: All CT scans at this facility use at least one of these dose optimization techniques: automated exposure control; mA and/or kV adjustment per patient size (includes targeted exams where dose is matched to clinical indication); or iterative reconstruction. Contrast material: [id number]; Contrast volume: 75 ml; Contrast route: INTRAVENOUS (IV); COMPARISON: No relevant prior studies available. FINDINGS: Liver: Normal. No mass. Gallbladder and biliary ducts: Status post cholecystectomy. Pancreas: Normal. No ductal dilation. Spleen: Normal. No splenomegaly. Adrenal glands: Small left adrenal nodule measuring 1.5 cm and consistent with a adrenal adenoma. In the absence of additional risk factors no further imaging follow-up is necessary. Kidneys and ureters: Normal. No hydronephrosis. Stomach and bowel: Sigmoid diverticulosis. No CT evidence for diverticulitis. Appendix: No evidence of appendicitis. Intraperitoneal space: Unremarkable. No free air. No significant fluid collection. Vasculature: Unremarkable. No abdominal aortic aneurysm. Lymph nodes: Unremarkable. No enlarged lymph nodes. Urinary bladder: Unremarkable as visualized. Reproductive: Unremarkable as visualized. Bones/joints: Unremarkable. No acute fracture. Soft tissues: Unremarkable. Other findings: In the surgical bed ill-defined edematous changes and fluid is noted without discrete abscess. IMPRESSION: 1. Status post cholecystectomy with a small amount of fluid and edematous changes identified in the surgical bed. No discrete abscess identified in the present time. 2. Small left adrenal adenoma as detailed above. No further imaging follow-up is necessary. 3. Sigmoid diverticulosis. Dictated and Authenticated by: Omero Joy MD. Orderin Cristino Blanton MD
[2024-09-20 22:34] LABS: Glucose Negative (Negative)
[2024-09-20 22:48] LABS: Bilirubin, Direct 0.5 mg/dL (0.0-0.2)
[2024-09-20] MEDS: POTASSIUM CHLORIDE 20 MEQ/100 ML BAG 50 MEQ IV_INF (22:59)
[2024-09-20] MEDS: Potassium Chloride 20 MEQ TABCR 40 MEQ PO (23:00)
[2024-09-20] MEDS: Lidocaine 5% Patch 1 PATCH TP (23:00)
--- NOTE | 2024-09-20 23:00 | RT.EKG_ITS ---
APPROVED REPORT Exam: Resting ECG Reason for Exam: chest discomfort Patient Location: E HR:67 bpm ECG Measurements Heart Rate 67 AXIS MS 139 P 65 QRSd 82 QRS 28 QT 419 T 50 QTc 443 Conclusion Sinus rhythm...normal P axis, V-rate 60- 99 Low voltage, precordial leads...precordial leads <1.0mV I have reviewed and interpreted ECG and agree with software generated interpretation.
[2024-09-20 23:37] LABS: Troponin I < 4 ng/L (<or=51)
[2024-09-21] VITALS (12 sets, daily range): BP systolic 96–127; BP diastolic 43–83; PULSE 61–84; RESP 9–18; O2SAT 99–100
[2024-09-23 10:05] LABS: Hepatitis A Antibody IgM Negative (Negative); Hepatitis C Ab w Rflx HCV PCR Negative (Negative)
== END 2024-09-21 01:09 | disposition home or self-care (01) ==
PROVIDERS: Emergency Provider Student in an Organized Health Care Education/Training Program; PCP Family Medicine
DX: R19.7 Diarrhea, unspecified (principal); R11.0 Nausea; E87.6 Hypokalemia; F17.210 Nicotine dependence, cigarettes, uncomplicated; Z90.49 Acquired absence of other specified parts of digestive tract
CPT/HCPCS: 36415; 80053; 83690; 84145; 86704; 86709; 86803; 87340; 93005; 96361; 96374; 96375; 99285; 74177; 81003; 82248; 83605; 84484; 85025; 93010; J1885; J2270; J2405; J3480; J3490

== ENCOUNTER 2024-09-22 11:57 | Emergency (ER) | payer OTHER, SELFPAY ==
[2024-09-22] VITALS (19 sets, daily range): BP systolic 119–125; BP diastolic 65–75; PULSE 62–100; RESP 12–23; TEMP 36.6; O2SAT 97–100
[2024-09-22] MEDS: Lactated Ringers 1,000 ML 1000 ML IV (13:17)
[2024-09-22 13:20] LABS: Abs Immature Grans 0.05 10^3/uL (0.0-0.06); HCT 34.2 % (36.0-46.0); HGB 11.3 g/dL (11.2-15.7); Immature Grans % 0.8 %; MCH 27.8 pg (27.0-33.0); MCHC 33.0 % (32.0-36.0); MCV 84 fL (80-95); MPV 9.9 fL (8.0-11.0); Platelet Count 211 10^3/uL (130-400); RBC 4.07 10^6/uL (3.93-5.22); RDW 13.0 % (11.7-14.6); RDW-SD 39.7 fL; WBC 6.48 10^3/uL (4.4-10.8)
--- NOTE | 2024-09-22 13:29 | W.ED.GENAD ---
Discharge Plan Disposition Patient Disposition: Home Condition: Stable Discharge Details Clinical Impression: Diarrhea, Nausea, Acute hypokalemia Primary Care Provider: Jessica Tenorio ED Provider: Jerson Byrd Home Meds and New Rx's Prescriptions: No Action clonazepam 0.5 MG tablet 1 mg PO PRN levothyroxine 50 MCG tablet 75 mcg PO DAILY esomeprazole magnesium [Nexium] 40 MG capsule,delayed release(DR/EC) 40 mg PO BID sertraline 25 MG tablet 100 mg PO DAILY Discharge Instructions Instructions: Diarrhea, Adult ED Additional Instructions: Be sure to continue to hydrate to replace any fluid is lost in diarrhea. Start to advance your diet slowly to soft bland foods. Take Imodium 2 mg orally after each loose stool for the next two days. Maximum 8 mg/day. Please follow-up with your general surgeon. Call tomorrow. Please follow-up with your primary care physician. Return to the emergency department immediately for any worsening or new concerning symptoms. Stand Alone Forms: Work Release Referrals: Jessica Tenorio [Primary Care Provider, Medicine] Jose L Marcial MD [ [facility] STAFF PHYSICIAN, Surgery] [facility] General Mode of arrival: ambulatory. Date/Time Provider Initiated Documentation: 09/22/24 12:10. Limitations to Documentation: no limitations. Information obtained by: patient. HPI Narrative: HISTORY OF PRESENT ILLNESS 43-year-old female with recent cholecystectomy presenting with severe diarrhea since surgery. Advised by general surgeon to seek ED care today. Seen in ED 2 days ago for postoperative abdominal pain; comprehensive workup including labs and CT abdomen/pelvis was normal. Patient returns today with persistent diarrhea and nausea. Reports severe, watery, burning yellow diarrhea, nausea, no solid food intake for 3 days, continued bowel movements. Successful cholecystectomy 6 days ago. Returned to hospital 2 days ago for chest pressure and upper abdominal discomfort; scan showed no abnormalities. She was found to be hypokalemic and was administered potassium, liver enzymes slightly elevated, rechecked, and discharged. Patient has been maintaining hydration with water and Gatorade, but has had persistent diarrhea. Contacted on-call surgeon about Imodium, advised to return to hospital. Feels better apart from diarrhea, no stomach pain. Has hiatal hernia, believes it may be causing symptoms. No vomiting, taking ondansetron for nausea. No appetite, pain with eating. No fevers, normal urination, no swelling or rashes. Took Imodium before coming to hospital. PAST SURGICAL HISTORY: Cholecystectomy on 09/16/2024 Related Data Home Medications ?Medication ?Instructions ?Recorded ?Confirmed clonazepam 0.5 mg tablet 1 mg PO PRN 06/06/13 09/22/24 esomeprazole magnesium 40 mg 40 mg PO BID 06/06/13 09/22/24 capsule,delayed release (Nexium) levothyroxine 50 mcg tablet 75 mcg PO DAILY 06/06/13 09/22/24 sertraline 25 mg tablet 100 mg PO DAILY 06/06/13 09/22/24 Allergies Allergy/AdvReac Type Severity Reaction Status Date / Time pork derived (porcine) Allergy Intermediate Other (See Verified 09/22/24 12:08 Comment) topiramate (From Topamax) Allergy Skin Rash Verified 09/22/24 12:08 aripiprazole (From Abilify) AdvReac Agitation Verified 09/22/24 12:08 General Stated Complaint: Abd Prob SONALI: 3 Review of Systems All systems reviewed & are unremarkable except as noted in HPI and below Constitutional Constitutional: Denies fever(s) Gastrointestinal Gastrointestinal: Reports as per HPI Exam Const General: cooperative and no acute distress HENMT Mouth: mucous membranes dry Eyes Conjunctivae: normal conjunctivae Sclera: normal sclerae Resp Auscultation: clear to auscultation bilaterally, no rales, no rhonchi and no wheezes Cardio Rate: regular rate and not tachycardic Rhythm: regular rhythm GI Palpation: soft, not firm, no guarding, no masses, not rigid and nontender Other: Laparoscopic surgical wounds healing well with no signs of infection Skin General skin exam: no rashes or lesions noted Neuro General: patient alert, patient awake, patient oriented x3 and tone normal Extrem General: no edema Course Vital Signs Vital signs: Vital Signs Temperature 36.6 C 09/22/24 12:04 Pulse 75 09/22/24 12:04 Respiratory Rate 18 09/22/24 12:04 Blood Pressure 125/75 09/22/24 12:04 Pulse Oximetry 97 09/22/24 12:04 Temperature 36.6 C 09/22/24 12:04 Temperature Source Oral 09/22/24 12:04 Pulse 75 09/22/24 12:04 Respiratory Rate 18 09/22/24 13:21 Blood Pressure 125/75 09/22/24 13:21 Blood Pressure Position Sitting 09/22/24 13:21 Pulse Oximetry 97 09/22/24 13:21 Oxygen Delivery Method Room Air 09/22/24 13:21 Oxygen Flow Rate 0 09/22/24 13:21 Pain Level 4 09/22/24 13:21 Lab/Test Results Lab/Test Results: Laboratory Tests Range/Units 09/22/24 13:08 WBC (4.4-10.8) 10^3/uL 6.48 RBC (3.93-5.22) 10^6/uL 4.07 Hgb (11.2-15.7) g/dL 11.3 Hct (36.0-46.0) % 34.2 L MCV (80-95) fL 84 MCH (27.0-33.0) pg 27.8 MCHC (32.0-36.0) % 33.0 RDW (11.7-14.6) % 13.0 Plt Count (130-400) 10^3/uL 211 MPV (8.0-11.0) fL 9.9 Immature Gran % % 0.8 Neutrophils % % 59.0 Lymphocytes % % 30.6 Monocytes % % 6.0 Eosinophils % % 2.8 Basophils % % 0.8 Nucleated RBC % (0.0-0.3) % 0.0 Absolute Neutrophils (1.2-6.7) 10^3/uL 3.83 Absolute Lymphocytes (1.2-3.4) 10^3/uL 1.98 Absolute Monocytes (0.1-0.8) 10^3/uL 0.39 Absolute Eosinophils (0.0-0.7) 10^3/uL 0.18 Absolute Basophils (0.0-0.2) 10^3/uL 0.05 Medical Decision Making ASSESSMENT AND PLAN Initial Assessment: 43-year-old female with severe diarrhea post-cholecystectomy, persistent symptoms since surgery 6 days ago. Patient is hemodynamically stable. Abdominal exam is benign. Differential Diagnosis: - Post-cholecystectomy diarrhea: Stool sample for C. difficile testing. IV fluids for potential dehydration. Consider electrolyte abnormalities. - C. difficile infection: Unlikely but will check. Stool sample for testing. - Hypovolemia ED Course: - Blood tests obtained. - Physical examination performed. An abdominal exam benign. - Stool sample collection for C. difficile testing. - IV fluids administered. - Patient was given oral potassium replacement 40 mill equivalents. - Labs reviewed and mild hypokalemia noted. No leukocytosis. Persistent elevation of LFTs with normal bilirubin. C. difficile negative. - Patient tolerating p.o. intake. - I called and spoke with Dr. Morelos, on-call general surgeon, discussed ED presentation course, he was aware of the patient. He feels Imodium would be appropriate at this point. - All results and treatment plan discussed with the patient. Usual and customary discharge instructions reviewed. Final Assessment: Persistent severe diarrhea post-cholecystectomy, potential dehydration addressed with IV fluids, C. difficile negative, mild hypokalemia. Clinical Impression: - Post-cholecystectomy diarrhea Disposition: - Discharge: Home, advised to return if symptoms worsen or new symptoms develop. - Plan for follow-up with general surgery this week. This document was written with the assistance of TIFFANIE Lopes. The patient consented to its use. Lab Data Lab results reviewed: Yes I reviewed the patient's lab results. Labs: Laboratory Tests Range/Units 09/22/24 09/22/24 13:08 13:35 WBC (4.4-10.8) 10^3/uL 6.48 RBC (3.93-5.22) 10^6/uL 4.07 Hgb (11.2-15.7) g/dL 11.3 Hct (36.0-46.0) % 34.2 L MCV (80-95) fL 84 MCH (27.0-33.0) pg 27.8 MCHC (32.0-36.0) % 33.0 RDW (11.7-14.6) % 13.0 Plt Count (130-400) 10^3/uL 211 MPV (8.0-11.0) fL 9.9 Immature Gran % % 0.8 Neutrophils % % 59.0 Lymphocytes % % 30.6 Monocytes % % 6.0 Eosinophils % % 2.8 Basophils % % 0.8 Nucleated RBC % (0.0-0.3) % 0.0 Absolute Neutrophils (1.2-6.7) 10^3/uL 3.83 Absolute Lymphocytes (1.2-3.4) 10^3/uL 1.98 Absolute Monocytes (0.1-0.8) 10^3/uL 0.39 Absolute Eosinophils (0.0-0.7) 10^3/uL 0.18 Absolute Basophils (0.0-0.2) 10^3/uL 0.05 Sodium (136-145) mmol/L 141 Potassium (3.5-5.1) mmol/L 3.2 L Chloride (98-107) mmol/L 105 Carbon Dioxide (21.0-32.0) mmol/L 26.6 Anion Gap (3-11) mmol/L 9.4 BUN (7-18) mg/dL 6 L Creatinine (0.55-1.02) mg/dL 0.8 Est GFR (CKD-EPI 2020) (mL/min/1.73m2) 93.70 Glucose (74-106) mg/dL 89 Calcium (8.5-10.1) mg/dL 8.8 Magnesium (1.8-2.4) mg/dL 1.9 Total Bilirubin (0.2-1.0) mg/dL 0.4 AST (15-37) U/L 68 H ALT (14-59) U/L 148 H Alkaline Phosphatase (46-116) U/L 155 H Total Protein (6.4-8.2) g/dL 6.6 Albumin (3.4-5.0) g/dL 3.3 L Lipase (<78) U/L 14 Stl C.difficile Tox PCR (Negative) Negative PFSH All Active Problems (Updated 09/22/24 @ 15:26 by Jerson Byrd MD) Acute hypokalemia (Acute) Nausea (Acute) Diarrhea (Acute) Transaminitis (Acute) Acute epigastric pain (Acute) Acute epigastric pain (Acute) Cholelithiasis (Acute) Foot pain, left (Acute) Calcaneal spur of left foot (Acute) Acute chest wall pain (Acute) PTSD (post-traumatic stress disorder) (Acute) Hypothyroidism (Chronic) Depression (Chronic) Anxiety (Chronic) Neck pain (Acute) Surgical History History of bilateral tubal ligation History of hysterectomy Social History Smoking/Tobacco Use Status: Current every day Tobacco Type: cigarettes Smoking risk assessment performed?: Yes Alcohol Intake: current Alcohol Intake frequency: holidays/special occasions only Drug use: Never Substance use type: does not use Details: Vape with nicotine Housing: house Do you feel safe in your relationship?: Yes
[2024-09-22 13:47] LABS: ALT 148 U/L (14-59); AST 68 U/L (15-37); Albumin 3.3 g/dL (3.4-5.0); Alkaline Phosphatase 155 U/L (46-116); Anion Gap 9.4 mmol/L (3-11); BUN 6 mg/dL (7-18); Bilirubin, Total 0.4 mg/dL (0.2-1.0); CO2 26.6 mmol/L (21.0-32.0); Calcium 8.8 mg/dL (8.5-10.1); Chloride 105 mmol/L (98-107); Estimated GFR 93.70 (mL/min/1.73m2); Glucose 89 mg/dL (74-106); Lipase 14 U/L (<78); Magnesium 1.9 mg/dL (1.8-2.4); Potassium 3.2 mmol/L (3.5-5.1); Sodium 141 mmol/L (136-145); Total Protein 6.6 g/dL (6.4-8.2)
[2024-09-22] MEDS: Potassium Chloride 20 MEQ TABCR 40 MEQ PO (14:17)
[2024-09-22 14:36] LABS: EPI 027-NAP1-B1 PRESUMPTIVE NEGATIVE
[2024-09-22] MEDS: Loperamide 2 MG CAP PO (15:37)
== END 2024-09-22 15:28 | disposition home or self-care (01) ==
PROVIDERS: Emergency Provider Student in an Organized Health Care Education/Training Program; PCP Family Medicine
DX: R19.7 Diarrhea, unspecified (principal); R11.0 Nausea; E87.6 Hypokalemia; F17.210 Nicotine dependence, cigarettes, uncomplicated; Z98.890 Other specified postprocedural states
CPT/HCPCS: 36415; 80053; 81025; 83690; 96360; 99284; 83735; 85025

== ENCOUNTER 2024-09-27 15:09 | Outpatient (CLI) | payer OTHER, SELFPAY ==
[2024-09-27 15:22] LABS: ALT 42 U/L (14-59); AST 15 U/L (15-37); Albumin 3.7 g/dL (3.4-5.0); Alkaline Phosphatase 106 U/L (46-116); Anion Gap 9.7 mmol/L (3-11); BUN 7 mg/dL (7-18); Bilirubin, Total 0.5 mg/dL (0.2-1.0); CO2 27.3 mmol/L (21.0-32.0); Calcium 9.2 mg/dL (8.5-10.1); Chloride 104 mmol/L (98-107); Estimated GFR 81.35 (mL/min/1.73m2); Glucose 97 mg/dL (74-106); Potassium 3.4 mmol/L (3.5-5.1); Sodium 141 mmol/L (136-145); Total Protein 7.0 g/dL (6.4-8.2)
== END 2024-09-27 15:10 | disposition home or self-care (01) ==
LOC: LBO 15:09
PROVIDERS: PCP Family Medicine; Visit Provider Family Medicine
DX: E87.6 Hypokalemia (principal)
CPT/HCPCS: 36415; 80053

== ENCOUNTER 2024-10-16 16:30 | Outpatient (REF) | payer OTHER, SELFPAY ==
[2024-10-16 18:05] LABS: Abs Immature Grans 0.03 10^3/uL (0.0-0.06); HCT 39.9 % (36.0-46.0); HGB 13.0 g/dL (11.2-15.7); Immature Grans % 0.4 %; MCH 27.9 pg (27.0-33.0); MCHC 32.6 % (32.0-36.0); MCV 86 fL (80-95); MPV 11.4 fL (8.0-11.0); Platelet Count 218 10^3/uL (130-400); RBC 4.66 10^6/uL (3.93-5.22); RDW 12.9 % (11.7-14.6); RDW-SD 39.3 fL; WBC 6.84 10^3/uL (4.4-10.8)
[2024-10-16 18:36] LABS: Anion Gap 8.4 mmol/L (3-11); BUN 7 mg/dL (7-18); CO2 28.6 mmol/L (21.0-32.0); Calcium 9.3 mg/dL (8.5-10.1); Chloride 105 mmol/L (98-107); Estimated GFR 80.84 (mL/min/1.73m2); Glucose 104 mg/dL (74-106); Potassium 4.3 mmol/L (3.5-5.1); Sodium 142 mmol/L (136-145); TSH 1.31 uIU/mL (0.36-3.74)
== END 2024-10-16 16:31 | disposition home or self-care (01) ==
LOC: NCHCN 16:30
PROVIDERS: PCP Family Medicine; Visit Provider Family Medicine
DX: R53.1 Weakness (principal)
CPT/HCPCS: 80048; 84439; 84443; 85025

== ENCOUNTER 2024-11-15 11:15 | Day surgery (SDC) | payer OTHER, SELFPAY ==
--- NOTE | 2024-11-14 18:30 | W.ANESPRE ---
General Info Date of Service Date Performed: 11/15/24 Height: 5 ft 3 in Weight: 86.296 kg Body Mass Index (BMI): 33.7 Surgical Procedure: Operation Date: 11/15/24 13:05 Proposed Procedure Side Surgeon p Gastroscopy Jose L Marcial MD Meds Allergies and Home Medications Allergies Allergy/AdvReac Type Severity Reaction Status Date / Time pork derived (porcine) Allergy Intermediate Other (See Verified 11/15/24 11:29 Comment) topiramate (From Topamax) Allergy Skin Rash Verified 11/15/24 11:29 aripiprazole (From Abilify) AdvReac Agitation Verified 11/15/24 11:29 Home Medication ?Medication ?Instructions ?Recorded clonazepam 0.5 mg tablet 1 mg PO PRN 06/06/13 esomeprazole magnesium 40 mg 40 mg PO BID 06/06/13 capsule,delayed release (Nexium) levothyroxine 50 mcg tablet 75 mcg PO DAILY 06/06/13 sertraline 25 mg tablet 100 mg PO DAILY 06/06/13 ondansetron 4 mg disintegrating 4 mg PO Q8H PRN 09/30/24 tablet loperamide 2 mg capsule 2 mg PO Q6H PRN 11/15/24 Current Visit Medications: Current Medications Generic Name Dose Route Start Last Admin Trade Name Freq PRN Reason Stop Dose Admin Ringer's Solution 1,000 mls @ 80 mls/hr 11/15/24 06:00 IV 11/15/24 23:59 INFUSION KATIA IV Miscellaneous Supplies 1 each 11/15/24 06:00 Iv Access IV 11/15/24 23:59 DIRECTED KATIA Sodium Chloride 0 ml 11/15/24 06:00 Normal Saline Flush 10 Ml Syr IV 11/15/24 23:59 PRN PRN Sodium Chloride 0 ml 11/15/24 06:00 Normal Saline 10 Ml Vial IJ 11/15/24 23:59 DIRECTED PRN Sterile Water 0 ml 11/15/24 06:00 Water,Injection,Sterile 10 Ml Vial IJ 11/15/24 23:59 DIRECTED PRN PFSH Active Problems Active Problems: Problem Status Onset Code Acute epigastric pain Acute R10.13 Cholelithiasis Acute K80.20 Acute chest wall pain Acute R07.89 PTSD (post-traumatic stress disorder) Acute F43.10 Hypothyroidism Chronic E03.9 Depression Chronic F32.9 Anxiety Chronic F41.9 Neck pain Acute M54.2 Surgical History Surgical History Hx laparoscopic cholecystectomy (~09/2024) History of bilateral tubal ligation History of hysterectomy Tobacco Smoking/Tobacco Use Status: Current every day Tobacco Type: cigarettes Passive smoking exposure: Yes Alcohol Alcohol Intake: current Alcohol intake frequency: holidays/special occasions only Substance Use Substance use: Never Substance use type: does not use Vital Signs and Lab Results Vital Signs Most Recent Vital Signs in EMR: Temp Pulse Resp BP Pulse Ox 36.3 C L 88 16 110/57 L 99 11/15/24 11:44 11/15/24 11:44 11/15/24 11:44 11/15/24 11:44 11/15/24 11:44 Lab Results Complete Blood Count: WBC, (4.4-10.8) 6.84 10^3/uL 10/16/24, 12:25 RBC, (3.93-5.22) 4.66 10^6/uL 10/16/24, 12:25 Hgb, (11.2-15.7) 13.0 g/dL 10/16/24, 12:25 Hct, (36.0-46.0) 39.9 % 10/16/24, 12:25 Plt Count, (130-400) 218 10^3/uL 10/16/24, 12:25 Complete Metabolic Panel: Sodium, (136-145) 142 mmol/L 10/16/24, 12:25 Potassium, (3.5-5.1) 4.3 mmol/L 10/16/24, 12:25 Chloride, (98-107) 105 mmol/L 10/16/24, 12:25 Carbon Dioxide, (21.0-32.0) 28.6 mmol/L 10/16/24, 12:25 BUN, (7-18) 7 mg/dL 10/16/24, 12:25 Creatinine, (0.55-1.02) 0.9 mg/dL 10/16/24, 12:25 Est GFR (CKD-EPI 2020), (mL/min/1.73m2) 80.84 10/16/24, 12:25 Calcium, (8.5-10.1) 9.3 mg/dL 10/16/24, 12:25 Glucose, (74-106) 104 mg/dL 10/16/24, 12:25 Thyroid Panel: TSH, (0.36-3.74) 1.31 uIU/mL 10/16/24, 12:25 Anesthesia Assessment and Plan Anesthesia History Personal History: No History of Anesthesia Complications Family History: No Family History of Anesthesia Complications Exercise Tolerance Exercise Tolerance: Metabolic Equivalents>4 Cardiac & Pulmonary Exam Cardiac Exam: Normal S1/S2 Heart Sounds Pulmonary Exam: Clear Bilateral Breath Sounds Implantable Cardiac Device Does patient have a Pacemaker or an ICD?: No Airway Exam Known Difficult Airway: No Mallampati Class: 3 Mouth Opening: Narrow (< 3cm) Thyromental Distance: Greater than 3 cm Neck Range of Motion: Full ROM Neck Circumference: Normal Teeth Condition: Normal Dentition ASA Classification ASA Score: ASA 2 Emergency Case?: No NPO Status NPO Status: NPO Clears >2 hours, Solids >8 hours Status Status: Negative HCG Anesthesia Plan Resuscitation Status: Full Code Anesthesia Technique: General Anesthesia Airway Planned: Natural Airway Monitors Used: Standard Monitors Preoperative Comments:: 44 yo for EGD. Sig PMHx: GERD (Nexium), hypothyroid (levothyroxine), depression/anxiety, PTSD. smoker. EKG: sinus tach. Previous Anes: - caitlin, glide 3 grade 3.
--- NOTE | 2024-11-15 11:28 | W.SURGCON ---
Date of service: 11/15/24 Time of Service: 11:28 Assessment and Plan Assessment and plan (1) GERD (gastroesophageal reflux disease): Status: Chronic Assessment and plan: 44-year-old woman with long?standing acid reflux symptoms as well as epigastric pain in the setting of a reported hiatal hernia. I do long detailed discussion with her again, today, at the bedside, about the reality that her symptoms will persist despite doing the endoscopy today. Namely the endoscopy will not provide any symptom relief whatsoever. Further, the biggest risk of doing the procedure is nondiagnostic results. Presumably she does have a hiatal hernia and we will be able to assess that as well as ongoing acid inflammation of the esophagus. However, we are unlikely to find any distinct or specific cause to explain her persistent and chronic nausea. She expresses an understanding of this and wants to proceed anyway. Plan: EGD History of Present Illness Narrative: Christine is a 44-year-old woman well-known to me. She has lived with nausea and epigastric pain for many years. Only a few months ago she presented with acutely worsening symptoms and was found to have acute cholecystitis in the setting of gallstones. A laparoscopic cholecystectomy was done and she has since been recovering well from that. Pathology did show acute as well as chronic cholecystitis as well as gallstones. Unfortunately, she has continued to have the nausea and epigastric pain that she has been so accustomed to for decades despite the gallbladder removal. In the past it has been postulated this is related to a hiatal hernia as well as acid reflux(GERD). Today at the bedside she says her incisions are healing nicely. They are itching a lot but otherwise not causing any trouble. Her biggest complaint today remains the daily nausea. PFSH All Active Problems (Updated 11/15/24 @ 12:00 by Jose L Marcial MD) GERD (gastroesophageal reflux disease) (Chronic) Acute epigastric pain (Acute) Cholelithiasis (Acute) Acute chest wall pain (Acute) PTSD (post-traumatic stress disorder) (Acute) Hypothyroidism (Chronic) Depression (Chronic) Anxiety (Chronic) Neck pain (Acute) Surgical History Hx laparoscopic cholecystectomy (~09/2024) History of bilateral tubal ligation History of hysterectomy Social History Smoking/Tobacco Use Status: Current every day Tobacco Type: cigarettes Smoking risk assessment performed?: Yes Alcohol Intake: current Alcohol Intake frequency: holidays/special occasions only Alcohol type: hard liquor Drug use: Never Substance use type: does not use Details: Vape with nicotine. Housing: house Do you feel safe in your relationship?: Yes Exam Narrative Exam Narrative: Gen: Non-toxic, comfortable and interactive Neuro: Alert and oriented x3 Psych: Good mood and affect. Good insight and understanding into condition. Chest: Non-labored breathing, no wheezing, no visible shortness of breath. Heart: Regular
[2024-11-15 11:44] VITALS: BP 110/57; PULSE 88; RESP 16; TEMP 36.3; O2SAT 99
[2024-11-15 11:47] VITALS: BMI 33.7
--- NOTE | 2024-11-15 12:02 | ENDO_ITS ---
Date of service: 11/15/24 Time of Service: 12:02 Endoscopy Report PROCEDURE DESCRIPTION: PROCEDURES PERFORMED: 1. EGD with biopsies 2. Cold forceps polypectomy PREOPERATIVE DIAGNOSIS: Epigastric pain, GERD with reflux esophagitis POSTOPERATIVE DIAGNOSIS: Stomach polyps, paraesophageal hernia(type III, AFS grade 4), mild esophagitis SURGEON: Zacarias Marcial MD INDICATION FOR PROCEDURE: 44-year-old woman with longstanding acid reflux and epigastric pain and a known hiatal hernia. Family history of Velázquez's esophagus. FINDINGS: D2/D3 = normal - multiple biopsies were taken (x 4) to rule out celiac disease(not suspected) D1/bulb = normal - no ulcers or inflammation Pylorus = normal Antrum = normal appearance, no ulcers, cold forceps biopsies were taken to rule out H. pylori routinely Body = normal appearance, biopsies taken with cold forceps technique routinely Fundus = a few scattered benign?appearing fundic polyps are present in the largest was removed cold forceps technique to assess/confirm. Cardia = normal Hiatus = completely disrupted flap valve and hiatus. Axial length of hernia 3+ centimeters. Aperture of hiatal defect approximately 2-3 cm. Patient does have a type III paraesophageal component to the hernia with provocation/hiccuping. Distal esophagus = visibly mild esophagitis. No mucosal breaks anywhere. Cold forceps biopsies taken to assess. No Velázquez's anywhere. Mid esophagus = normal Proximal esophagus/hypopharynx/vocal cords = normal SURVEILLANCE-INTERVAL/FOLLOW-UP: When BMI less than 30, can consider elective hernia repair. Specimens: Yes EBL: Minimal COMPLICATIONS: None Procedure in detail: The patient gave written consent and was in agreement with the indications, the potential risks as well as the benefits of the procedure. The patient was taken to the endoscopy suite and laid on her left side. Anesthesia was given which was tolerated well. We performed a timeout and we are in agreement I started the procedure. A well-lubricated endoscope was gently and carefully advanced down the esophagu s, into the stomach and through the pylorus into the duodenum. The scope was then slowly withdrawn with the above-noted findings/interventions. The patient tolerated the procedure well.
--- NOTE | 2024-11-15 12:02 | W.PM.DSUDISC ---
Date of service: 11/15/24 Discharge Plan Disposition Patient Disposition: Home Condition: Good Discharge Details Attending Provider: Jose L Marcial Primary Care Provider: Jessica Tenorio Home Meds and New Rx's Prescriptions: No Action ondansetron 4 mg tablet,disintegrating 4 mg PO Q8H PRN clonazepam 0.5 MG tablet 1 mg PO PRN levothyroxine 50 MCG tablet 75 mcg PO DAILY esomeprazole magnesium [Nexium] 40 MG capsule,delayed release(DR/EC) 40 mg PO BID sertraline 25 MG tablet 100 mg PO DAILY loperamide 2 mg capsule 2 mg PO Q6H PRN Discharge Instructions Additional Instructions: FINDINGS: You have a large hiatal hernia causing your epigastric pain as well as your acid reflux. These can be fixed, however you will need to get your BMI under 30 before surgical repair can be considered. It is unlikely your nausea is related to the hernia and more likely it is a side effect of something you are ingesting. Stand Alone Forms: Anesthesia Discharge Inst., DSU Post EGD Instructions, Aye De Los Santos (DSU) Activity:: Activity as Tolerated Diet:: As Tolerated Discharge Orders Discharge Orders: Discharge Order (Routine); Ordered 11/15/24 Ordered By: Jose L Marcial DS: Diagnosis Discharge Diagnosis (1) GERD (gastroesophageal reflux disease): Status: Chronic
[2024-11-15] MEDS: Lactated Ringers 1,000 ML 80 ML IV (12:03)
--- NOTE | 2024-11-15 12:21 | BOWEL_PTH ---
PATIENT: Hanna Hooks LOC: [facility] U#:[id number] AGE/SX: 44/F ROOM: RE11/15/[address]: Jose L Marcial : 1980 BED: DIS: 11/15/2024 SPEC #: [id number] RECD: 11/15/24 12:49 STATUS: MERCEDES BOLDEN #: [id number] RALPH: 11/15/24 12:[address]: Jose L Marcial DEPT: Surgical Specimen RECD BY: Rhonda Mcmullen ENTERED: 11/15/24 12:52 SP TYPE: Bowel OTHR DR: Jessica Tenorio Tissues: 1 - BIOPSY BOWEL 2 - STOMACH BIOPSY 3 - STOMACH BIOPSY 4 - ESOPHAGUS BIOPSY Procedures: GROSS AND MICRO LEVEL 4 Comments: [id number]
[2024-11-15 12:35] VITALS: BP 112/56; PULSE 89; RESP 16; TEMP 36; O2SAT 98
--- NOTE | 2024-11-15 12:44 | W.ANESPOSTOP ---
Postoperative Evaluation Date, Time and Location Date Performed: 11/15/24 Time Performed: 12:44 Patient Location: Day Surgery Unit Vital Signs Most Recent Imported Vital Signs: Most Recent Vital Signs Temp Pulse Resp BP Pulse Ox 36 C L 89 16 112/56 L 98 11/15/24 12:35 11/15/24 12:35 11/15/24 12:35 11/15/24 12:35 11/15/24 12:35 Pain Score Most Recent Pain Score: Most Recent Pain Score Pain Level 0 11/15/24 12:35 Assessment Mental Status: Awake (Alert & Oriented to Patient Baseline) Airway and Respiratory Function: Patent airway with normal (patient baseline) respiratory exam Cardiovascular Function: Hemodynamically Stable Hydration Status: Adequately Hydrated Nausea & Vomiting: No Nausea or Vomiting Pain: Pt. Denies Any Pain Peripheral Nerve Block: Patient did not receive a nerve block
[2024-11-15 13:03] VITALS: BP 106/62; PULSE 73; RESP 14; TEMP 36.3; O2SAT 100
== END 2024-11-15 14:09 | disposition home or self-care (01) ==
LOC: SUR 11:16
PROVIDERS: PCP Family Medicine; Visit Provider Student in an Organized Health Care Education/Training Program
PROC: 0DJ68ZZ Inspection of Stomach, Via Natural or Artificial Opening Endoscopic (ICD-10-PCS; CPT 43235; principal; 2024-11-15 13:00)
DX: K21.00 Gastro-esophageal reflux disease with esophagitis, without bleeding (principal); K31.7 Polyp of stomach and duodenum; R10.13 Epigastric pain; K44.9 Diaphragmatic hernia without obstruction or gangrene; K31.9 Disease of stomach and duodenum, unspecified
CPT/HCPCS: 43239; 88305; J2003; J2250; J2405; J2704

== ENCOUNTER 2025-01-28 11:32 | Emergency (ER) | payer OTHER, SELFPAY ==
--- NOTE | 2025-01-28 11:30 | RT.EKG_ITS ---
APPROVED REPORT Exam: Resting ECG Reason for Exam: Chest pressure/tightness/pain Patient Location: E HR:90 bpm ECG Measurements Heart Rate 90 AXIS AZ 140 P 63 QRSd 73 QRS 14 QT 362 T 52 QTc 443 Conclusion Sinus rhythm...normal P axis, V-rate 60- 99 Low voltage, precordial leads...precordial leads <1.0mV No Occlusion PR
[2025-01-28 11:35] VITALS: BP 135/59; PULSE 95; RESP 20; TEMP 36.7; O2SAT 99
--- NOTE | 2025-01-28 11:50 | W.ED.GENAD ---
Discharge Plan Disposition Patient Disposition: Home Discharge Details Clinical Impression: Bronchitis, Viral URI with cough Primary Care Provider: Jessica Tenorio ED Provider: Stuart Flaherty Home Meds and New Rx's Prescriptions: New cetirizine 10 mg tablet 10 mg PO DAILY PRNQty: 7 0RF benzonatate 100 mg capsule 100 mg PO BID PRNQty: 7 0RF Continued ondansetron 4 mg tablet,disintegrating 4 mg PO Q8H PRN azithromycin [Zithromax Z-Luis] 250 mg tablet See Rx Instructions PO .COMPLEX PRN Rx Instructions: For 250 mg dose pack: take 500 mg today (day 1), then 250 mg for 4 days (days 2-5) orally PRN; clonazepam 0.5 MG tablet 1 mg PO PRN levothyroxine 50 MCG tablet 75 mcg PO DAILY esomeprazole magnesium [Nexium] 40 MG capsule,delayed release(DR/EC) 40 mg PO BID sertraline 25 MG tablet 100 mg PO DAILY loperamide 2 mg capsule 2 mg PO Q6H PRN Discharge Instructions Additional Instructions: You are seen in the emergency department for cough and chest tightness. Your blood work as we discussed showed no sign of a heart attack. Your x-ray showed no sign of pneumonia. You may continue taking your antibiotics that you had been previously prescribed. Please return to the emergency department if you develop shortness of breath fevers chills or if your chest pain worsens. Otherwise please follow-up as needed with your primary care provider. Stand Alone Forms: Portal Information Discharge Data Discharge Date/Time-TO BE ENTERED AT DEPARTURE: 01/28/25 14:33 HPI General Date/Time Provider Initiated Documentation: 01/28/25 11:35. HPI Narrative: MDM This is a quite well-appearing normothermic and not tachycardic 44-year-old female with cough chest tightness recent diagnosis of pneumonia for which patient will undergo chest x-ray to assess for infiltrate. Patient's pain is atypical for ACS however she has risk factors of elevated BMI. As result we will obtain troponin series. No tearing quality to suggest aortic dissection. No pain out of proportion to suggest necrotizing soft tissue infection. No trauma and equal breath sounds so doubt pneumothorax. Patient has not been vomiting to suggest increased risk for esophageal rupture. She is PERC negative so I did not send a D-dimer as my suspicion is low for PE. Furthermore she is neither tachycardic nor hypoxic so my suspicion is low for tamponade. No wheezes nor prolonged expiratory phase to suggest acute reactive airway disease will defer steroids and albuterol. 1:13 PM Reassuring normal magnesium. CBC lacks anemia thrombocytopenia leukocytosis. Negative hCG. Chest x-ray with no acute cardiopulmonary process. Comprehensive metabolic panel no LFT abnormalities. No acute electrolyte abnormalities. No KANWAL. 2:53 PM Late charting due to patient care. Patient had undetectable troponin given duration of time since her symptoms began I did not feel she required repeat troponin testing. She felt slightly improved in the emergency department. Her repeat troponin was also undetectable. We discussed that she should return if she developed any worsening chest pain shortness of breath calf pain or she had any other concerns. She reported that she had an outpatient previously arranged PCP follow-up in the next several weeks. She understood her return indications and was discharged with an empiric trial of expectant outpatient management. HEART SCORE Chest pain Diagnostic Protocol: [-History/Physical/Gestalt: Slightly Suspicious (0)] [- EKG: Nonspecific repolarization (+1)] [-AGE: less than 45 (0)] [- RISK FACTORS: 1 - 2 risk factors (+1)] [-TROPONIN: <= normal limit (0)] - TOTAL SCORE: 2 - Risk Factors: DM, current or recent smoker, HTN, HLD, family hx of CAD, obesity - INTERPRETATION: With a total score of 3 or less, risk of major cardiac event within six weeks 1.7%, likely lower with two negative troponins. [I explained to the patient that the risk of subsequent major cardiac event within 1 month is not 0, however risk predicted to be less than 2%. Patient verbalized understanding, accepts this risk and shared and the decision for discharge with PCP follow-up for further evaluation and management. They understand to return to the ED immediately with any worsening symptoms, new symptoms or other concerns.] Diagnostic interpretations performed by me: Per my independent interpretation chest x-ray shows: No acute cardiopulmonary process Per my independent interpretation EKG shows: Narrow complex sinus rhythm at a rate of 98. Normal axis. Intervals within normal limits. No ST segment abnormalities. T wave flattening in aVL and lead III. Compared to prior dated earlier this year no acute changes. Persistent low voltage. HPI This is a patient with a history of asthma and pneumonia presenting with chest pain. The patient began experiencing chest pain early this morning, which she describes as a sensation of heaviness. The onset of the pain was not associated with any specific activity. She reports a persistent cough and a feeling of phlegm accumulation in her chest that she is unable to expel. The patient smokes cigarettes but has recently ceased vaping. She has a known history of asthma and was previously prescribed albuterol and another inhaler, the name of which she cannot recall. Despite using these inhalers this morning, she found no relief. She has a past medical history of pneumonia, for which she was treated with azithromycin, leading to a slight improvement in her condition. However, 3 to 4 days post-treatment, she developed symptoms of a sore throat, postnasal drip, and phlegm production. She was subsequently prescribed Augmentin on 01/24/2025 due to her susceptibility to pneumonia. She reports no recent travel, history of myocardial infarction, or diabetes. She also reports no high blood pressure, stating that her blood pressure typically trends towards the lower end. She has not experienced any falls or chest trauma. She reports no vomiting but mentions that she takes Zofran for nausea. She reports no unusual rashes on her chest but does report fatigue. Exam General: Well-appearing in no acute distress speaking in complete sentences. Head: Normocephalic, atraumatic. Eye: Extraocular eye movements intact. No conjunctival injection. No scleral icterus. Ear, nose, mouth, throat: Grossly normal inspection. Normal voice, handling secretions normally. Neck: Trachea midline. Cardiovascular: Well-perfused distal extremities. Regular rate and rhythm. Respiratory: Nonlabored respiration. Transmitted upper respiratory sounds. No wheezes. No focal lung abnormalities. Gastrointestinal: Nondistended abdomen. Musculoskeletal: No edema. Moving all 4 extremities spontaneously. Skin: Normal for age and race, grossly normal temperature and turgor. No acute rash. Neurologic: Alert and appropriate, no apparent acute deficits. Psychiatric: Mood and manner are appropriate. Grooming and personal hygiene are appropriate. Related Data Home Medications Medication Instructions Recorded Confirmed clonazepam 0.5 mg tablet 1 mg PO PRN 06/06/13 01/28/25 esomeprazole magnesium 40 mg 40 mg PO BID 06/06/13 01/28/25 capsule,delayed release (Nexium) levothyroxine 50 mcg tablet 75 mcg PO DAILY 06/06/13 01/28/25 sertraline 25 mg tablet 100 mg PO DAILY 06/06/13 01/28/25 ondansetron 4 mg disintegrating 4 mg PO Q8H PRN 09/30/24 01/28/25 tablet loperamide 2 mg capsule 2 mg PO Q6H PRN 11/15/24 01/28/25 azithromycin 250 mg tablet See Rx Instructions PO .COMPLEX PRN 01/13/25 01/28/25 (Zithromax Z-Luis) benzonatate 100 mg capsule 100 mg PO BID PRN #7 caps 01/28/25 cetirizine 10 mg tablet 10 mg PO DAILY PRN #7 tabs 01/28/25 Previous Rx's Medication Instructions Recorded benzonatate 100 mg capsule 100 mg PO BID PRN #7 caps 01/28/25 cetirizine 10 mg tablet 10 mg PO DAILY PRN #7 tabs 01/28/25 Allergies Allergy/AdvReac Type Severity Reaction Status Date / Time pork derived (porcine) Allergy Intermediate Other (See Verified 01/28/25 11:39 Comment) topiramate (From Topamax) Allergy Skin Rash Verified 01/28/25 11:39 aripiprazole (From Abilify) AdvReac Agitation Verified 01/28/25 11:39 General Stated Complaint: Chest Pain SONALI: 3 Course Vital Signs Vital signs: Vital Signs Temperature 36.7 C 01/28/25 11:35 Pulse 95 H 01/28/25 11:35 Respiratory Rate 20 01/28/25 11:35 Blood Pressure 135/59 L 01/28/25 11:35 Pulse Oximetry 99 01/28/25 11:35 Temperature 36.7 C 01/28/25 11:35 Pulse 95 H 01/28/25 11:35 Respiratory Rate 20 01/28/25 11:35 Blood Pressure 135/59 L 01/28/25 11:35 Pulse Oximetry 99 01/28/25 11:35 Oxygen Delivery Method Room Air 01/28/25 11:35 Oxygen Flow Rate 0 01/28/25 11:35 PFSH All Active Problems (Updated 01/28/25 @ 13:58 by Stuart Flaherty MD) Viral URI with cough (Acute) Bronchitis (Acute) GERD (gastroesophageal reflux disease) (Chronic) Acute epigastric pain (Acute) Cholelithiasis (Acute) Acute chest wall pain (Acute) PTSD (post-traumatic stress disorder) (Acute) Hypothyroidism (Chronic) Depression (Chronic) Anxiety (Chronic) Neck pain (Acute) Surgical History (Updated 11/18/24 @ 08:32 by Misty Yun) History of esophagogastroduodenoscopy (~11/15/24) Hx laparoscopic cholecystectomy (~09/2024) History of bilateral tubal ligation History of hysterectomy Social History Smoking/Tobacco Use Status: Current every day Tobacco Type: cigarettes Smoking risk assessment performed?: Yes Alcohol Intake: current Alcohol Intake frequency: holidays/special occasions only Alcohol type: hard liquor Drug use: Never Substance use type: does not use Details: Vape with nicotine. Housing: house Do you feel safe in your relationship?: Yes
--- NOTE | 2025-01-28 12:00 | DI.RAD_ITS ---
Exam(s) XR CHEST 2V PA LATERAL EXAM: XR CHEST 2V PA LATERAL CLINICAL HISTORY: Chest pain TECHNIQUE: 2D digital imaging was performed. Two views. COMPARISON: CT CT CHEST/ABD/PEL W from 09/15/2024 FINDINGS: HEART: Normal size. Aorta: Not dilated. PULMONARY VASCULATURE: Normal. MEDIASTINUM: Unremarkable. LUNGS: Clear. PLEURAL SPACE: No pleural effusion or pneumothorax. BONE:Thoracolumbar scoliosis. SOFT TISSUES: Unremarkable. IMPRESSION: No acute abnormality. DATA REPOSITORY: RADIATION DOSE DELIVERED:
[2025-01-28] MEDS: Acetaminophen 500 MG TAB 1000 MG PO (12:13)
[2025-01-28] MEDS: Benzonatate 100 MG CAP PO (12:14)
[2025-01-28] MEDS: Ketorolac 15 MG/ML VIAL IVP (12:23)
[2025-01-28 12:34] LABS: Abs Immature Grans 0.01 10^3/uL (0.0-0.06); HCT 39.6 % (36.0-46.0); HGB 13.0 g/dL (11.2-15.7); Immature Grans % 0.2 %; MCH 27.6 pg (27.0-33.0); MCHC 32.8 % (32.0-36.0); MCV 84 fL (80-95); MPV 9.9 fL (8.0-11.0); Platelet Count 229 10^3/uL (130-400); RBC 4.71 10^6/uL (3.93-5.22); RDW 13.0 % (11.7-14.6); RDW-SD 40.0 fL; WBC 6.41 10^3/uL (4.4-10.8)
[2025-01-28 13:06] LABS: HCG Qual (Serum) Negative
[2025-01-28 13:11] LABS: Magnesium 2.0 mg/dL (1.6-2.6)
[2025-01-28 13:13] LABS: ALT 11 U/L (10-49); AST 16 U/L (<34); Albumin 4.2 g/dL (3.4-5.0); Alkaline Phosphatase 60 U/L (46-116); Anion Gap 7.2 mmol/L (3-11); BUN 7 mg/dL (9-23); Bilirubin, Total 0.40 mg/dL (0.2-1.2); CO2 28.8 mmol/L (20.0-31.0); Calcium 9.3 mg/dL (8.3-10.6); Chloride 108 mmol/L (98-107); Glucose 95 mg/dL (74-106); Potassium 3.8 mmol/L (3.5-5.1); Sodium 144 mmol/L (136-145); Total Protein 6.7 g/dL (5.7-8.2)
[2025-01-28 13:49] LABS: Troponin I < 3 ng/L (<35)
[2025-01-28 14:27] VITALS: BP 102/47; PULSE 75; RESP 16; TEMP 36.7; O2SAT 99
[2025-01-28 15:24] LABS: Troponin I < 3 ng/L (<35)
== END 2025-01-28 14:33 | disposition home or self-care (01) ==
PROVIDERS: Emergency Provider Emergency Medicine; PCP Family Medicine
DX: R07.9 Chest pain, unspecified (principal); J40 Bronchitis, not specified as acute or chronic; R05.9 Cough, unspecified; Z72.0 Tobacco use
CPT/HCPCS: 99284 ×2; 96374; 36415; 80053; 93005; 71046; 83735; 84484; 84703; 85025; 93010; J1885